=== PATIENT | male | born 1960 | race African-American/Black ===

== ENCOUNTER → 2017-03-30 | Outpatient (CLI) | payer OTHER ==
[~2017-03-30] MED LIST: AMLO5TAB4 PO; ASPI-482 PO; CARV12.5 PO; LOSA50TA6 PO
--- NOTE | 2017-03-30 15:07 | RAD ---
Chest radiograph 03/30/2017 2:00 AM Indication: Postop open heart surgery 5 years ago. Comparison: Chest 07/23/2012 Technique: PA and lateral views of the chest are provided. Findings: Median sternotomy changes are identified. Cardiac valvular prosthesis is present. Cardiomediastinal silhouette is enlarged, stable. No pleural effusions, pulmonary vascular congestion or pneumothorax. The lungs are clear. Osseous structures are normal. Impression: No acute cardiopulmonary process.
== END | disposition home or self-care (01) ==
LOC: RAD 09:58
PROVIDERS: ATTEND Surgery
DX: R07.9 Chest pain, unspecified (principal)
CPT/HCPCS: 71020

== ENCOUNTER 2017-04-04 08:00 | Inpatient (IN) | payer MEDICARE, OTHER ==
[~2017-04-04] VITALS: Ht 175.3 cm; Wt 71.7 kg
[2017-04-04] MEDS ORDERED: IV NORMAL SALINE 1000ML BAG 1,000 ML IV SCH (08:09)
[2017-04-04] MEDS ORDERED: ASPIRIN CHEWABLE 81 MG TABLET. PO ONE (08:15)
[2017-04-04] MEDS ORDERED: 0.9 % SODIUM CHLORIDE 10 ML DISP.SYRIN. IV PRN (08:15)
--- NOTE | 2017-04-04 08:29 | PHYS DOC ---
Past Medical History Past Medical History: High Cholesterol, Heart Disease, Hypertension Additional Past Surgical Histo: heart valve replacement. Smoking: Cigarettes Alcohol Use: Heavy Drug Use: Marijuana Adult General Chief Complaint Chief Complaint: CHEST PAIN HPI HPI He is a pleasant 57-year-old -[place] male with a history of valve replacement surgery presents with 3 day history of chest pain that began suddenly at rest. Patient is retired and has had a history of hypertension and hyperlipidemia and smokes marijuana on occasion and occasionally drinks alcohol on a daily basis presents with chest pain that began in the shoulder blade on the left with radiation to the neck and now constant pleuritic chest pain underneath the left breast. It is continuous in nature all the time sharp stabbing pains that comes in waves this very short nature. It makes him diaphoretic and short of breath when he has these pains. Denies any nausea, vomiting, diarrhea or URI symptoms. Patient admits that the pain is worse with chest wall movement and movement of shoulder. He is not ever had symptoms like this in the past. Patient denies any direct trauma to his chest wall, travel outside the country. Patient does admit that he's got decreased exercise tolerance over the last several months for which she's not been using his cane. Hedoesn't have energy enough to climb a couple steps. Patient denies any indiscretion with salt intake or dietary changes. He does admit that he's been having sleep on several pillows at night as well as increasing frequency of using the restroom in dye range feeder. Differential diagnosis for chest pain: Pericarditis, myocarditis, endocarditis, pneumothorax, pneumonia, aortic dissection, esophageal spasm, esophagitis, peptic ulcer disease, acute coronary syndrome, mediastinitis, Boerhaave syndrome , musculoskeletal chest wall pain, costochondritis, intercostal strain, rib fracture, pulmonary contusion, pneumonitis, pleural effusion, pericardial effusion, pericardial tamponode, and pleurisy. Differential diagnosis: Acute myocardial ischemia, heart failure, cardiac tamponade, bronchospasm, pulmonary embolism, pneumothorax, pulmonary infection i.e. bronchitis or pneumonia, upper airway obstruction, anaphylaxis, aspiration , psychogenic, pulmonary contusion, toxidrome, pneumomediastinum, noncardiogenic pulmonary edema or ARDS, COPD, tuberculosis, cystic fibrosis, asthma, high altitude pulmonary edema, valvular dysfunction, cardiac dysrhythmia , stroke, neuromuscular diseases like myasthenia gravis gravis, ALS, Guillain- Johansen syndrome, metabolic acidosis to include diabetic ketoacidosis, sepsis, and obstructive disorders like massive obesity Criteria: Age < than 50 years Heart rate < 100 Oxygen saturation > 95% No hemoptysis No estrogen use No prior DVT or PE No unilateral leg swelling No surgery or trauma requiring hospitalization within the prior 4 weeks Unfortunately based on age he does not fit the low risk criteria. Review of Systems Review of Systems Constitutional: Denies fever or chills [] Eyes: Denies change in visual acuity, redness, or eye pain [] HENT: Denies nasal congestion or sore throat [] Respiratory: He does complain of shortness of breath with this chest wall pain. Cardiovascular: No additional information not addressed in HPI [] GI: Denies abdominal pain, nausea, vomiting, bloody stools or diarrhea [] : Denies dysuria or hematuria [] Musculoskeletal: Denies back pain or joint pain [] Integument: Denies rash or skin lesions [] Neurologic: Denies headache, focal weakness or sensory changes [] Endocrine: Denies polyuria or polydipsia [] Current Medications Current Medications Current Medications Medications (Trade) Dose Ordered Sig/Amado Start Time Stop Time Status Last Admin Dose Admin Albuterol/ Ipratropium (Duoneb) 3 ml RTQID 04/04/17 12:00 04/05/17 11:59 Aspirin (Children'S Aspirin) 324 mg 1X ONCE 04/04/17 08:15 04/04/17 08:31 DC 04/04/17 08:51 324 MG Fentanyl Citrate (Fentanyl 2ml Vial) 50 mcg PRN Q1HR PRN 04/04/17 10:00 04/05/17 09:59 Furosemide (Lasix) 80 mg 1X ONCE 04/04/17 10:00 04/04/17 10:05 DC Hydromorphone HCl (Dilaudid) 1 mg 1X ONCE 04/04/17 08:30 04/04/17 08:31 DC 04/04/17 08:52 1 MG Methylprednisolone Sodium Succinate (SOLU-Medrol 125MG VIAL) 125 mg 1X ONCE 04/04/17 09:00 04/04/17 09:02 DC 04/04/17 09:31 125 MG Nitroglycerin (Nitrostat) 0.4 mg PRN Q5MIN PRN 04/04/17 10:00 04/05/17 09:59 Ondansetron HCl (Zofran) 4 mg PRN Q8HRS PRN 04/04/17 10:00 04/05/17 09:59 Sodium Chloride 1,000 ml @ 70 mls/hr [id number] 04/04/17 09:59 04/05/17 09:58 Sodium Chloride (Normal Saline Flush) 10 ml QSHIFT PRN 04/04/17 08:15 Allergies Allergies Allergies Coded Allergies Type Severity Reaction Last Updated Verified No Known Drug Allergies 04/04/17 No Physical Exam Physical Exam Vital signs within normal limits as noted on the chart. Constitutional: Well developed, well nourished, this patient is obviously uncomfortable and is diaphoretic but nontoxic in appearance. HENT: Normocephalic, atraumatic, bilateral external ears normal, oropharynx moist, no oral exudates, nose normal. [] Eyes: PERRLA, EOMI, conjunctiva normal, no discharge. [] Neck: Normal range of motion, no tenderness, supple, no stridor. [] Cardiovascular:Heart rate regular rhythm, no murmur [] Lungs & Thorax: Patient has markedly decreased breath sounds on the left with some high-pitched wheeze. Noted mild retractions sternal notch Abdomen: Bowel sounds normal, soft, no tenderness, no masses, no pulsatile masses. [] Skin: Warm, no erythema no rash patient mildly diaphoretic Back: No tenderness, no CVA tenderness. [] Extremities: No tenderness, no cyanosis, no clubbing, ROM intact, no edema. [] Neurologic: Alert and oriented X 3, normal motor function, normal sensory function, no focal deficits noted. [] Psychologic: Affect normal, judgement normal, mood normal. [] Current Patient Data Vital Signs Vital Signs Date Time Temp Pulse Resp B/P (MAP) Pulse Ox O2 Delivery O2 Flow Rate FiO2 04/04/17 09:21 97 Room Air 04/04/17 08:52 16 04/04/17 08:21 97.9 86 170/111 (130) 97.9 Lab Values Laboratory Tests Test 04/04/17 08:18 White Blood Count 9.3 x10^3/uL (4.0-11.0) Red Blood Count 4.47 x10^6/uL (4.30-5.70) Hemoglobin 12.3 g/dL (13.0-17.5) L Hematocrit 38.8 % (39.0-53.0) L Mean Corpuscular Volume 87 fL (79-100) Mean Corpuscular Hemoglobin 28 pg (25-35) Mean Corpuscular Hemoglobin Concent 32 g/dL (31-37) Red Cell Distribution Width 16.3 % (11.5-14.5) H Platelet Count 248 x10^3/uL (140-400) Neutrophils (%) (Auto) 64 % (31-73) Lymphocytes (%) (Auto) 28 % (24-48) Monocytes (%) (Auto) 7 % (0-9) Eosinophils (%) (Auto) 0 % (0-3) Basophils (%) (Auto) 1 % (0-3) Neutrophils # (Auto) 5.9 x10^3uL (1.8-7.7) Lymphocytes # (Auto) 2.6 x10^3/uL (1.0-4.8) Monocytes # (Auto) 0.6 x10^3/uL (0.0-1.1) Eosinophils # (Auto) 0.0 x10^3/uL (0.0-0.7) Basophils # (Auto) 0.1 x10^3/uL (0.0-0.2) Sodium Level 140 mmol/L (136-145) Potassium Level 4.2 mmol/L (3.5-5.1) Chloride Level 103 mmol/L (98-107) Carbon Dioxide Level 30 mmol/L (21-32) Anion Gap 7 (6-14) Blood Urea Nitrogen 8 mg/dL (8-26) Creatinine 1.2 mg/dL (0.7-1.3) Estimated GFR (Cockcroft-Gault) 76.1 Glucose Level 124 mg/dL (70-99) H Calcium Level 9.4 mg/dL (8.5-10.1) Magnesium Level 1.9 mg/dL (1.8-2.4) Total Bilirubin 0.5 mg/dL (0.2-1.0) Direct Bilirubin 0.1 mg/dL (0.0-0.2) Aspartate Amino Transferase (AST) 47 U/L (15-37) H Alanine Aminotransferase (ALT) 44 U/L (16-63) Alkaline Phosphatase 158 U/L (46-116) H Creatine Kinase 83 U/L (39-308) Creatine Kinase MB (Mass) 0.5 ng/mL (0.0-3.6) Creatine Kinase MB Relative Index 0.6 % (0-4) Troponin I Quantitative 0.027 ng/mL (0.000-0.055) RL-Ccs-S-Type Natriuretic Peptide 1856 pg/mL (0-124) H Total Protein 7.9 g/dL (6.4-8.2) Albumin 3.5 g/dL (3.4-5.0) Lipase 286 U/L (73-393) Thyroid Stimulating Hormone (TSH) 1.536 uIU/mL (0.358-3.74) Laboratory Tests 04/04/17 08:18 Laboratory Tests 04/04/17 08:18 EKG EKG []Patient's EKG timed 8:[address] Doan demonstrates heart rate of 89 sinus rhythm with left atrial enlargement there is no ST segment or T-wave changes consistent with acute or ischemia. Patient has T-wave flattening in the lateral leads patient's AL interval is 136 which is normal patient's QRS is 90 which is normal patient's QTc is 471 which is normal. Radiology/Procedures Radiology/Procedures [] [facility] [address] [place] [address] IMAGING REPORT Signed PATIENT: DOREEN TAYLOR ACCOUNT: [id number] : 1960 LOCATION: ER AGE: 57 SEX: M EXAM STATUS: PRE ER ORD. PHYSICIAN: NAGA DOAN MD REASON: chest pain PROCEDURE: PORTABLE CHEST 1V Portable chest, 04/04/2017: History: Left-sided chest pain Comparison is made to a study from 03/30/2017. A cardiac valvular prosthesis is in place. The heart is mildly enlarged. The pulmonary vascularity is normal. No pulmonary infiltrates are seen. There is no evidence of pleural fluid. IMPRESSION: 1. Mild cardiomegaly. 2. No acute abnormality is detected. DICTATED and SIGNED BY: BRENDA WOOD MD DATE: 04/04/17 0834 CC: NAGA DOAN MD; Shamar ZELAYA MD ~ Course & Med Decision Making Course & Med Decision Making Pertinent Labs and Imaging studies reviewed. (See chart for details) chest pain differential considered upon arrival. My concern with patient's evaluation respiratory distress and diaphoresis is pneumothorax. Patient wanted immediate EKG, chest x-ray and appropriate supportive lab work done to ensure that this is not an acute coronary event. Given his propensity to drink alcohol and smoke THC patient also may have an URI or bronchitis. Patient tells me that their symptoms given during CC are improved. At this point 9 AM patient was markedly better just with the IV medications of pain control. It was noted that his chest x-ray didn't demonstrate a large cardiac shadow with no obvious signs of cephalization. Patient some wheezing and crackles at the bases a DuoNeb was ordered with some Solu-Medrol. Patient tells me that their symptoms given during CC are improved. We reviewed labs and radiology reports with patient and any family at bedside.. Time is now 9:45 AM patient is noted to be feeling markedly better no longer diaphoretic no longer short of breath no longer wheezing. Patient denied discussed elevated proBNP and enlarged cardiac shadow which is likely symptomatic of congestive heart failure. Given his history of increased shortness of breath with exertion as well as pain at night and nocturnal dyspnea as well as orthopnea it is likely that this is due to cardiac strain secondary to poorly controlled hypertension. Patient denied discussed admission for the sake of cardiology evaluation diuresing him of his extra fluid and seeing if he can improve his symptoms of exertional shortness of breath with a simple therapies. At this point IV Lasix and nitrates sublingually ordered. Plan was discussed with the nurse taking care of this. The patient. An internal medicine was paged. Fisher Eel Spear note: 9:55 AM medicine creative services coordinator called at of the service 10 AM Consult called back at Discussed the case I presented and they agreed with admission. Time of acceptance spoke with on-call physician Dr. Bhakta At this point impression is congestive heart failure and chest pain possibly cardiac in nature. Patient has a negative troponin and a negative EKG for any acute coronary ischemia. Patient has an enlarged cardiac shadow and an elevated proBNP consistent with congestive heart failure as well as a history is very concerning for that etiology. Patient be given medication to help diuresis congestive heart failure. Pain medications as also helped his chest pain symptoms. I spent approximately 45-50 minutes working and engaged directly in the patient care providing critical care evaluation this includes but not limited to time spent engaged in work directly related to the individual patients care. I spent time at the bedside, reviewing test results, discussing the case with staff, documenting the medical record and time spent with EMS discussing specific treatment issues when the patient presented and during his evaluation. [] Dragon Disclaimer Dragon Disclaimer This electronic medical record was generated, in whole or in part, using a voice recognition dictation system. Departure Departure Impression: Primary Impression: Chest pain Additional Impression: CHF (congestive heart failure) Disposition: 09 ADMITTED INPATIENT Admitting Physician: Royce Bhakta Condition: GUARDED Referrals: Shamar ZELAYA MD (PCP) Problem Qualifiers NAGA DOAN MD Apr 04, 2017 08:29
[2017-04-04] MEDS ORDERED: ONDANSETRON PF 4 MG/2 ML VIAL. IV ONE (08:30)
[2017-04-04] MEDS ORDERED: HYDROmorphone 2 MG/ML VIAL IV ONE (08:30)
[2017-04-04 08:36] LABS: BASO # 0.1 x10^3/uL (0.0-0.2); BASO % 1 % (0-3); EOS % 0 % (0-3); HEMATOCRIT 38.8 % (39.0-53.0); HEMOGLOBIN 12.3 g/dL (13.0-17.5); LYMPH # 2.6 x10^3/uL (1.0-4.8); LYMPH % 28 % (24-48); MEAN CORPUSCULAR HEMOGLOBIN 28 pg (25-35); MEAN CORPUSCULAR HGB CONC 32 g/dL (31-37); MEAN CORPUSCULAR VOLUME 87 fL (79-100); MONO % 7 % (0-9); NEUT % 64 % (31-73); PLATELET COUNT 248 x10^3/uL (140-400); RED BLOOD COUNT 4.47 x10^6/uL (4.30-5.70); RED CELL DISTRIBUTION WIDTH 16.3 % (11.5-14.5); WHITE BLOOD COUNT 9.3 x10^3/uL (4.0-11.0)
--- NOTE | 2017-04-04 08:37 | RAD ---
Portable chest, 04/04/2017: History: Left-sided chest pain Comparison is made to a study from 03/30/2017. A cardiac valvular prosthesis is in place. The heart is mildly enlarged. The pulmonary vascularity is normal. No pulmonary infiltrates are seen. There is no evidence of pleural fluid. IMPRESSION: 1. Mild cardiomegaly. 2. No acute abnormality is detected.
[2017-04-04 08:42] LABS: CALCIUM 9.4 mg/dL (8.5-10.1); CREATININE 1.2 mg/dL (0.7-1.3); GFR 76.1; POTASSIUM 4.2 mmol/L (3.5-5.1)
[2017-04-04 08:47] LABS: ALBUMIN 3.5 g/dL (3.4-5.0); DIRECT BILIRUBIN 0.1 mg/dL (0.0-0.2); MAGNESIUM 1.9 mg/dL (1.8-2.4); TOTAL BILIRUBIN 0.5 mg/dL (0.2-1.0); TOTAL PROTEIN 7.9 g/dL (6.4-8.2)
--- NOTE | 2017-04-04 08:50 | EKG ---
[facility] [address] [place] [address] Test Date: 2017-04-04 Test Time: 08:12:15 Pat Name: DOREEN TAYLOR Department: Room: Gender: M Dcs Engineer: : 1960 Requested By: NAGA DOAN Order Number: [id number] Reading MD: Diallo Pulliam Measurements Intervals [place] Rate: 89 P: 90 RI: 136 QRS: -9 QRSD: 90 T: 93 QT: 386 QTc: 471 Interpretive Statements SINUS RHYTHM POSSIBLE LEFT VENTRICULAR HYPERTROPHY WITH REPOL ABN. Electronically Signed On 04-09-2017 10:20:52 CDT by Diallo Pulliam
[2017-04-04 08:53] LABS: CKMB MASS 0.5 ng/mL (0.0-3.6)
[2017-04-04] MEDS ORDERED: IPRATRPIUM/ALBUTEROL 0.5/2.5MG 3 ML NEBU. NEB ONE (09:00)
[2017-04-04] MEDS ORDERED: methylPREDNISolone SOD SUCC PF 125 MG/2 ML VIAL. IV ONE (09:00)
[2017-04-04] MEDS ORDERED: fentaNYL PF VIAL 100 MCG/2 ML VIAL IV PRN (10:00)
[2017-04-04] MEDS ORDERED: NITROGLYCERIN SUBLINGUAL 0.4 MG BOTTLE OF 25. SL PRN ×2 (10:00)
[2017-04-04] MEDS ORDERED: ONDANSETRON PF 4 MG/2 ML VIAL. IV PRN (10:00)
[2017-04-04] MEDS ORDERED: FUROSEMIDE 40 MG/4 ML VIAL. IVP ONE (10:00)
[2017-04-04] MEDS: IV NORMAL SALINE 1000ML BAG 1,000 ML IV SCH (10:51)
[2017-04-04 11:00] VITALS: BP 162/104
[2017-04-04] MEDS: IPRATRPIUM/ALBUTEROL 0.5/2.5MG 3 ML NEBU. NEB SCH ×3 (12:03→19:06)
[2017-04-04 12:07] VITALS: BP 152/102
--- NOTE | 2017-04-04 12:41 | PDOC2 ---
MINO MUHAMMAD BUTTON TUFTING MACHINE OPERATOR 04/04/17 1241: CARDIAC CONSULT DATE OF CONSULT Date of Consult DATE: 04/04/17 TIME: 12:32 REASON FOR CONSULT Reason for Consult: Chest pain New onset CHF REFERRING PHYSICIAN Referring Physician: Dr. Briggs SOURCE Source: Chart review, Patient HISTORY OF PRESENT ILLNESS HISTORY OF PRESENT ILLNESS This is a 57 yo male, with a history of CAD s/p CABG in 2012, who presented with complaints of shortness of breath and chest pain. Patient developed right neck pain about three weeks ago. Johnson like it was a "crook" in his neck. Worse with certain movements. Pain moved down and across his his back and eventually to his left side/chest area. Associated with shortness of breath with exertion and orthopnea. No palpitations, dizziness, or nausea/vomiting. Reports having night sweats since starting Norvasc a few weeks ago. Left lateral chest pain worsened with deep breathing, movement, and by applying pressures to the left side. Improved with massage. Pain has been constant for the last 3 weeks, much worse the last week. Last night, pain so severe he was unable to sleep so he came into the ED for further evaluation. Pain resolved with Dilaudid. SOA also improved following Lasix 80mg IV and breathing treatments in ED. Initial troponin negative. NT Pro BNP mildly elevated, CXR without vascular congestion. PAST MEDICAL HISTORY Cardiovascular: CAD, CHF (with ICM ), HTN, Valve insufficiency (s/p mitral valve repair with ring annuloplasty and left atrial appendage ligation) GI: No pertinent hx Heme/Onc: No pertinent hx Hepatobiliary: No pertinent hx Psych: No pertinent hx Rheumatologic: No pertinent hx Infectious disease: No pertinent hx ENT: No pertinent hx Renal/: No pertinent hx Endocrine: No pertinent hx Dermatology: No pertinent hx PAST SURGICAL HISTORY Past Surgical History: CABG, Other (mitral valve repair ) FAMILY HISTORY Family History: Coronary Artery Disease, Heart Disease, Hypertension SOCIAL HISTORY Smoke: No ALCOHOL: none Drugs: None Lives: with Family CURRENT MEDICATIONS CURRENT MEDICATIONS Current Medications Medications (Trade) Dose Ordered Sig/Amado Route PRN Reason Start Time Stop Time Status Last Admin Dose Admin Aspirin (Children'S Aspirin) 324 mg 1X ONCE PO 04/04/17 08:15 04/04/17 08:31 DC 04/04/17 08:51 Sodium Chloride 1,000 ml @ 1,000 mls/hr Q1H IV 04/04/17 08:09 04/04/17 09:08 DC 04/04/17 08:09 Hydromorphone HCl (Dilaudid) 1 mg 1X ONCE IV 04/04/17 08:30 04/04/17 08:31 DC 04/04/17 08:52 Ondansetron HCl (Zofran) 4 mg 1X ONCE IV 04/04/17 08:30 04/04/17 08:31 DC 04/04/17 08:51 Albuterol/ Ipratropium (Duoneb) 3 ml 1X ONCE NEB 04/04/17 09:00 04/04/17 09:02 DC 04/04/17 09:21 Methylprednisolone Sodium Succinate (SOLU-Medrol 125MG VIAL) 125 mg 1X ONCE IV 04/04/17 09:00 04/04/17 09:02 DC 04/04/17 09:31 Furosemide (Lasix) 80 mg 1X ONCE IVP 04/04/17 10:00 04/04/17 10:05 DC 04/04/17 10:17 Sodium Chloride 1,000 ml @ 70 mls/hr [id number] IV 04/04/17 09:59 04/05/17 09:58 04/04/17 10:51 Albuterol/ Ipratropium (Duoneb) 3 ml RTQID NEB 04/04/17 12:00 04/05/17 11:59 04/04/17 12:03 ALLERGIES ALLERGIES: Coded Allergies: No Known Drug Allergies (Unverified , 04/04/17) ROS Review of System 14 point ROS conducted with pertinent positives noted above in HPI. PHYSICAL EXAM General: Alert, Oriented X3, Cooperative, No acute distress HEENT: Atraumatic, Mucous membr. moist/pink Lungs: Other (diminished bases ) Heart: Regular rate, Normal S1, Normal S2, Other (2/6 systolic murmur ) Abdomen: Soft, No tenderness Extremities: No edema, Normal pulses Skin: No breakdown, No significant lesion Neuro: Normal speech, Sensation intact Psych/Mental Status: Mental status NL, Mood NL MUSCULOSKELETAL: Osteoarthritic changes both hands VITALS VITALS Vital Signs Date Time Temp Pulse Resp B/P (MAP) Pulse Ox O2 Delivery O2 Flow Rate FiO2 04/04/17 12:07 98.2 75 16 152/102 (119) 95 Room Air 98.2 LABS Lab: Laboratory Tests Test 04/04/17 08:18 White Blood Count 9.3 x10^3/uL (4.0-11.0) Red Blood Count 4.47 x10^6/uL (4.30-5.70) Hemoglobin 12.3 g/dL (13.0-17.5) Hematocrit 38.8 % (39.0-53.0) Mean Corpuscular Volume 87 fL (79-100) Mean Corpuscular Hemoglobin 28 pg (25-35) Mean Corpuscular Hemoglobin Concent 32 g/dL (31-37) Red Cell Distribution Width 16.3 % (11.5-14.5) Platelet Count 248 x10^3/uL (140-400) Neutrophils (%) (Auto) 64 % (31-73) Lymphocytes (%) (Auto) 28 % (24-48) Monocytes (%) (Auto) 7 % (0-9) Eosinophils (%) (Auto) 0 % (0-3) Basophils (%) (Auto) 1 % (0-3) Neutrophils # (Auto) 5.9 x10^3uL (1.8-7.7) Lymphocytes # (Auto) 2.6 x10^3/uL (1.0-4.8) Monocytes # (Auto) 0.6 x10^3/uL (0.0-1.1) Eosinophils # (Auto) 0.0 x10^3/uL (0.0-0.7) Basophils # (Auto) 0.1 x10^3/uL (0.0-0.2) Sodium Level 140 mmol/L (136-145) Potassium Level 4.2 mmol/L (3.5-5.1) Chloride Level 103 mmol/L (98-107) Carbon Dioxide Level 30 mmol/L (21-32) Anion Gap 7 (6-14) Blood Urea Nitrogen 8 mg/dL (8-26) Creatinine 1.2 mg/dL (0.7-1.3) Estimated GFR (Cockcroft-Gault) 76.1 Glucose Level 124 mg/dL (70-99) Calcium Level 9.4 mg/dL (8.5-10.1) Magnesium Level 1.9 mg/dL (1.8-2.4) Total Bilirubin 0.5 mg/dL (0.2-1.0) Direct Bilirubin 0.1 mg/dL (0.0-0.2) Aspartate Amino Transf (AST/SGOT) 47 U/L (15-37) Alanine Aminotransferase (ALT/SGPT) 44 U/L (16-63) Alkaline Phosphatase 158 U/L (46-116) Creatine Kinase 83 U/L (39-308) Creatine Kinase MB (Mass) 0.5 ng/mL (0.0-3.6) Creatine Kinase MB Relative Index 0.6 % (0-4) Troponin I Quantitative 0.027 ng/mL (0.000-0.055) RR-Kbp-B-Type Natriuretic Peptide 1856 pg/mL (0-124) Total Protein 7.9 g/dL (6.4-8.2) Albumin 3.5 g/dL (3.4-5.0) Lipase 286 U/L (73-393) Thyroid Stimulating Hormone (TSH) 1.536 uIU/mL (0.358-3.74) ASSESSMENT/PLAN ASSESSMENT/PLAN 1. Chest pain, atypical and most probably MSK in origin 2. Mild acute on chronic systolic heart failure with ICM; LVEF 30-35% (10/2012) 3. CAD s/p CABG 2012 4. S/p mitral valve repair with ring annuloplasty 5. Accelerate hypertension 6. Hyperlipidemia Recommendations Trend troponin. Lipids in am Check echo to assess LV function/mitral valve Resume home antiHTN therapy. Monitor to assess need for therapy titration Continue secondary prevention measures Replace potassium following significant UOP with 80mg IV Lasix Stop Norvasc. Start ARB given LV dysfunction and HTN. Supportive care Further recommendations pending diagnostics. Problems: KASSIDY EPPERSON MD 04/04/17 2229: CARDIAC CONSULT ALLERGIES ALLERGIES: Coded Allergies: No Known Drug Allergies (Unverified , 04/04/17) ASSESSMENT/PLAN ASSESSMENT/PLAN Pt. seen and examined. Agree with above HOOK TENDER note with following changes: 57 y.o with prior CABG and MV ring. Presenting with progressive dyspnea. He has not had any significant improvement in LV function since CABG. Will plan for right and left heart cath to rule out ischemia, consider ICD if no clear new lesions. Problems: MINO MUHAMMAD APRN Apr 04, 2017 12:41 KASSIDY EPPERSON MD Apr 04, 2017 22:29
[2017-04-04] MEDS ORDERED: ASPI-482 PO (13:10)
[2017-04-04] MEDS ORDERED: CARV12.5 PO (13:10)
[2017-04-04] MEDS ORDERED: AMLO5TAB4 PO (13:10)
[2017-04-04] MEDS ORDERED: POTASSIUM CHLORIDE 20 MEQ TABLET.ER. PO ONE (13:30)
[2017-04-04] MEDS ORDERED: amLODIPine BESYLATE 5 MG TABLET PO SCH (14:00)
--- NOTE | 2017-04-04 14:59 | CARD ---
APPROVED REPORT EXAM: Two-dimensional and M-mode echocardiogram with Doppler and color Doppler. Other Information Quality : GoodHR: 74bpm Rhythm : NSR INDICATION Cardiac Disease: CAD Chest Pain Congenital Heart Disease 2D DIMENSIONS RVDd3.7 (2.9-3.5cm)Left Atrium(2D)4.1 (1.6-4.0cm) IVSd0.9 (0.7-1.1cm)Aortic Root(2D)3.4 (2.0-3.7cm) LVDd6.7 (3.9-5.9cm)LVOT Diameter2.3 (1.8-2.4cm) PWd1.0 (0.7-1.1cm)LVDs6.3 (2.5-4.0cm) FS (%) 6.7 %SV33.9 ml LVEF(%)14.6 (>50%) M-Mode DIMENSIONS LVDd6.77 (4.0-5.6cm)FS (%) 19 % LVDs5.45 (2.0-3.8cm)ESV(Teich)144.3 ml LVEF(%)39 (>50%) Aortic Valve AoV Peak [place].128.9cm/sAoV VTI24.5cm AO Peak GR.6.6mmHgLVOT Peak [place].62.4cm/s AO Mean GR.4mmHgAVA (VMAX)1.96cm2 Mitral Valve MV E Mnexuywp367.7cm/sMV E Peak Gr.19mmHg MV DECEL [id number] A Qqrdknzk33.4cm/s MV E Mean Gr.6mmHgE/A Ratio4.3 MV A Atmidnpt50reKRS Planimetry2.69cm2 Pulmonary Valve PV Peak Jitqpcwh23.1cm/s Tricuspid Valve TR P. Utwclpxp551sz/sTR Peak Gr.58mmHg Pulmonary Vein S1 Dhxzfvoc67.1cm/sD2 Jbyexfrt13.9cm/s PVa hexefzcu84xake LEFT VENTRICLE The Left Ventricle is mildly dilated. There is normal left ventricular wall thickness. Left ventricle systolic function is severely impaired. The Ejection Fraction is 20-25%. There is severe global hypo kinesis of the left ventricle. Transmitral Doppler flow pattern is Grade II-pseudonormal filling aniket mics. No left ventricle thrombus noted on this study. RIGHT VENTRICLE The right ventricle is mildly dilated. There is normal right ventricular wall thickness. Systolic fun ction is moderately reduced. ATRIA The left atrium is mildly dilated. The right atrium size is normal. The interatrial septum is intact with no evidence for an atrial septal defect or patent foramen ovale as noted on 2-D or Doppler imagi ng. AORTIC VALVE The aortic valve is mildly sclerotic. The aortic valve is trileaflet. Doppler and Color Flow revealed trace aortic regurgitation. There is no significant aortic valvular stenosis. MITRAL VALVE The mitral valve leaflets are moderately thickened. There is no evidence of mitral valve prolapse. Th ere is no mitral valve stenosis. Doppler and Color Flow revealed mild to moderate mitral regurgitatio n. There is evidence of mitral valve ring repair. Mitral inflow velocities show a peak max gradient o f 19 mmHg. and mean peak gradient of 6 mmHg. TRICUSPID VALVE Doppler and Color Flow revealed mild tricuspid regurgitation. The pulmonary artery systolic pressure is estimated at 66 mmHg. There is severe pulmonary hypertension. PULMONIC VALVE The pulmonary valve is not well visualized but appears to open adequately. Doppler and Color Flow rev ealed mild pulmonic valvular regurgitation. There is no pulmonic valvular stenosis by spectral Dopple r. GREAT VESSELS The aortic root is normal in size. The ascending aorta is normal in size. The pulmonary artery is nor mal. The IVC is dilated and collapses <50% with inspiration. PERICARDIAL EFFUSION There is no evidence of significant pericardial effusion. Critical Notification Date: 04/04/2017 Time: 14:39 Physician Name:Zohra Ritter Critical Value: Yes Response Time:Immediate <Conclusion> Left ventricle systolic function is severely impaired. The Ejection Fraction is 20-25%. Doppler and Color Flow revealed trace aortic regurgitation. s/p mitral valve ring repair with mean peak gradient of 6 mmHg. Mild to moderate mitral regurgitation. Mild tricuspid regurgitation. The pulmonary artery systolic pressure is estimated at 66 mmHg. There is severe pulmonary hypertension. There is no evidence of significant pericardial effusion.
[2017-04-04 15:00] VITALS: BP 161/106
[2017-04-04] MEDS: CARVEDILOL 12.5 MG TABLET. PO SCH (16:05)
--- NOTE | 2017-04-04 16:43 | HP ---
ADMIT DATE: 04/04/2017 CHIEF COMPLAINT: Shortness of breath. HISTORY OF PRESENT ILLNESS: The patient is a pleasant middle-aged male who has known coronary artery disease. He presented with shortness of breath. While in the ER, he was noted to have a little bit of vascular congestion on chest x-ray. I have discussed the case with the ER physician. We are going to admit the patient with consultation to Cardiology. He is being examined on the cardiac floor right now where the nurse practitioner for Cardiology is also seeing. PAST MEDICAL HISTORY: Myocardial infarction, coronary artery bypass grafting, mild CHF, hypertension, status post mitral valve repair. ALLERGIES: None. FAMILY HISTORY: Coronary artery disease and hypertension. SOCIAL HISTORY: He does not drink, smoke or take drugs. He is . MEDICATIONS: Reviewed. REVIEW OF SYSTEMS: GENERAL: No history of weight change, weakness or fevers. SKIN: No bruising, hair changes or rashes. EYES: No blurred, double or loss of vision. NOSE AND THROAT: No history of nosebleeds, hoarseness or sore throat. HEART: No history of palpitations, chest pain or shortness of breath on exertion. LUNGS: Complains of shortness of breath. GASTROINTESTINAL: Denies changes in appetite, nausea, vomiting, diarrhea or constipation. GENITOURINARY: No history of frequency, urgency, hesitancy or nocturia. NEUROLOGIC: Denies history of numbness, tingling, tremor or weakness. PSYCHIATRIC: No history of panic, anxiety or depression. ENDOCRINE: No history of heat or cold intolerance, polyuria or polydipsia. EXTREMITIES: Denies muscle weakness, joint pain, pain on walking or stiffness. PHYSICAL EXAMINATION: VITAL SIGNS: Temperature afebrile, pulse is 78, respirations 16, blood pressure 161/106, O2 sat 97% on room air. GENERAL: He is alert, cooperative, very pleasant. His is present. HEART: Normal S1, S2 with a soft S3. LUNGS: Slight crackles. ABDOMEN: Soft. EXTREMITIES: Trace edema. SKIN: No rashes. PSYCHIATRIC: He is a little anxious. VASCULAR: Good capillary refill. ENDOCRINE: No thyromegaly. LYMPHATICS: No cervical nodes. HEMATOPOIETIC: No bruising. LABORATORY DATA: White count 9, hemoglobin 12, platelets 248. Electrolytes normal. AST slightly high at 47, alkaline phosphatase slightly high at 158. BNP 1856. Troponin is 0.027, we repeated and is now 0.017. ASSESSMENT AND PLAN: Shortness of breath with vague chest pain in a middle-aged male who has above-noted comorbidities. I discussed the case with the patient and his and the nurse practitioner for Cardiology. The plan is to check an echo and see how his left ventricle is pumping. We will continue cardiac monitoring, serial enzymes, serial EKGs. Continue home medicines. We will probably diurese him a little bit. Regarding the slight elevation of his AST and alkaline phosphatase, we will consult Gastroenterology for a second opinion. LONG-TERM PROGNOSIS: Guarded. ELIJAH PEÑALOZA DO DR: LOYD/justine JOB#: [id number] / [id number]
[2017-04-04 19:25] VITALS: BP 147/102
[2017-04-04] MEDS: ASPIRIN ENTERIC COATED 81 MG TABLET.DR. PO SCH (21:44)
[2017-04-04 23:20] VITALS: BP 140/92
[2017-04-05] VITALS (14 sets, daily range): BP systolic 113–152; BP diastolic 86–101
[2017-04-05] MEDS: IV NORMAL SALINE 1000ML BAG 1,000 ML IV SCH (00:17)
--- NOTE | 2017-04-05 04:44 | ACF ---
Admission Forms Criteria HEART FAILURE: COMMON COMPLICATIONS (Place 'X' for any and all applicable criteria): Ongoing inpatient care may be indicated for heart failure with 1 or more of the following (1)(2)(3)(4)(5)(6)(7)(8): [ ]I. New-onset heart failure [ ]II. Acute cardiac ischemia causing or associated with failure [ ]III. Ongoing need for care for primary condition requiring frequent therapy adjustments because of changes in cardiac function (eg, drug dosage changes for drugs that are renally metabolized) [X]IV. Complications of heart failure, including 1 or more of the following: [ ]a) Hemodynamic instability [ ]b) Pericardial effusion [ ]c) Symptomatic pleural effusion [ ]d) Hypoxemia [ ]e) Tachypnea [X]f) Dyspnea [ ]g) Syncope [ ]h) Altered mental status [ ]i) Acute renal insufficiency that is severe (reduction of more than 50% in estimated glomerular filtration rate from baseline) or progressive reduction of more than 25% in estimated glomerular filtration rate from baseline, with creatinine continuing to rise) [ ]j) Debilitating anasarca (eg tissue breakdown with infection, inability to void due to edema) (E) [ ]k) Clinically significant metabolic abnormalities due to heart failure (eg, new-onset metabolic acidosis) Extended stay may be needed until ALL of the following are present (1)(3)(18)(41 )(55) [ ]a) Hemodynamic stability [ ]b) Stable and effective diuretic regimen established (or patient on stable dialysis regimen if in chronic renal failure) [ ]c) Volume status acceptable on oral medication [ ]d) Breathing comfortably at rest [ ]e) Saturation of arterial oxygen greater than 90% or at acceptable baseline [ ]f) Pulmonary edema absent or improved [ ]g) Peripheral or sacral edema absent or improved [ ]h) Renal function stable and manageable at a lower level of care [ ]i) Complications (eg, pleural effusion) resolved or manageable at a lower level of care [ ]g) Patient or caregiver has received written discharge instructions or educational material addressing activity level, diet, discharge medications, follow-up appointment, weight monitoring, and what to do if symptoms worsen.(25)(26) The original [facility] content created by [email or web address] has been revised. The portions of the content which have been revised are identified through the use of italic text, and [facility] has neither reviewed nor approved the modified material.All other unmodified content is copyright [facility]. Please see references footnoted in the original [facility] edition 2015 Admission Criteria Met?: Yes TRAVIS GUZMAN Apr 05, 2017 04:44
[2017-04-05 05:51] LABS: CALCIUM 8.9 mg/dL (8.5-10.1); CREATININE 1.2 mg/dL (0.7-1.3); GFR 76.1; MAGNESIUM 1.7 mg/dL (1.8-2.4)
[2017-04-05 05:52] LABS: CHOLESTEROL/HDL RATIO 4.4
[2017-04-05] MEDS ORDERED: MAGNESIUM SULFATE 2GM 50 ML IV ONE ×2 (07:00→10:00)
[2017-04-05] MEDS ORDERED: LEVOTHYROXINE 25 MCG TABLET. PO SCH (07:00)
[2017-04-05] MEDS: IPRATRPIUM/ALBUTEROL 0.5/2.5MG 3 ML NEBU. NEB SCH (07:54)
--- NOTE | 2017-04-05 09:10 | RAD ---
Indication:Abnormal liver function test Grayscale images of the abdomen were obtained. Comparison none Liver:The visualized liver appears normal. No mass or abnormality is seen. Gallbladder:Normal. The common bile duct diameter of approximately 3 mm is also normal Spleen:Normal Pancreas:The visualized head and proximal body appeared normal. The more distal body was obscured. Kidneys:Normal Abdominal aorta and IVC:The visualized inferior vena cava appeared normal. The proximal abdominal aorta appeared normal. The more distal abdominal aorta was obscured by gas Ancillary findings:None Impression:No acute or significant finding. Midline structures partially obscured by gas
[2017-04-05] MEDS ORDERED: HYDROcodone/APAP 5/325MG 1 TAB TABLET PO PRN (09:30)
[2017-04-05] MEDS ORDERED: ONDANSETRON PF 4 MG/2 ML VIAL. IV PRN (09:45)
[2017-04-05] MEDS ORDERED: LIDOCAINE 2% 20 ML VIAL. ONE (09:56)
[2017-04-05] MEDS ORDERED: IODIXANOL 320 MG/ML 100 ML VIAL. ONE (09:56)
--- NOTE | 2017-04-05 10:10 | PDOC2 ---
GI CONSULT Reason For Consult: Elevated AST and Alk Phos HPI: HPI: 57 y/o male admitted yesterday w/ SOA and CP, h/o CAD, just back from heart cath. GI asked to see re: AST 47 and Alk Phos 158. Both were normal in 12/2014 (only labs for comparison). Normal liver on US. Reports has lower abd pain occasionally upon waking, particularly if takes pills on an empty stomach. Always improves w/ food. Occasional heartburn improved w/ Tums. No n/v, dysphagia, diarrhea, constipation, hematochezia, or melena. No NSAID use. No previous EGD or colonoscopy. No GB, liver, or pancreas history. Drinks wine occasionally on weekends or holidays. PMH: PMH: CAD, CHF w/ ICM , HTN, MVR, CABG FH: Family History: CAD, Hypertension Social History: Smoke: No ALCOHOL: occassional Drugs: Marijuana ROS: GEN: Denies fevers, chills, sweats HEENT: Denies blurred vision, sore throat CV: Denies chest pain RESP: Denies shortness of air, cough GI: Per HPI : Denies hematuria, dysuria ENDO: Denies weight changes NEURO: Denies confusion, dizziness MSK: Denies weakness, joint pain/swelling SKIN: Denies jaundice, pruritus Vitals: Vitals: Vital Signs Date Time Temp Pulse Resp B/P (MAP) Pulse Ox O2 Delivery O2 Flow Rate FiO2 04/05/17 08:55 Room Air 04/05/17 07:56 98 04/05/17 07:46 97.9 77 18 152/96 (114) 97.9 Labs: Labs: Laboratory Tests Test 04/04/17 14:55 04/04/17 20:00 04/05/17 03:40 Troponin I Quantitative < 0.017 ng/mL (0.000-0.055) < 0.017 ng/mL (0.000-0.055) Sodium Level 139 mmol/L (136-145) Potassium Level 4.0 mmol/L (3.5-5.1) Chloride Level 101 mmol/L (98-107) Carbon Dioxide Level 29 mmol/L (21-32) Anion Gap 9 (6-14) Blood Urea Nitrogen 13 mg/dL (8-26) Creatinine 1.2 mg/dL (0.7-1.3) Estimated GFR (Cockcroft-Gault) 76.1 Glucose Level 136 mg/dL (70-99) Calcium Level 8.9 mg/dL (8.5-10.1) Magnesium Level 1.7 mg/dL (1.8-2.4) Triglycerides Level 39 mg/dL (0-150) Cholesterol Level 154 mg/dL (0-200) LDL Cholesterol, Calculated 111 mg/dL (0-100) VLDL Cholesterol, Calculated 8 mg/dL (0-40) Non-HDL Cholesterol Calculated 119 mg/dL (0-129) HDL Cholesterol 35 mg/dL (40-60) Cholesterol/HDL Ratio 4.4 Allergies: Coded Allergies: No Known Drug Allergies (Unverified , 04/04/17) Medications: Current Medications Medications (Trade) Dose Ordered Sig/Amado Route PRN Reason Start Time Stop Time Status Last Admin Dose Admin Albuterol/ Ipratropium (Duoneb) 3 ml RTQID NEB 04/04/17 12:00 04/05/17 11:59 04/05/17 07:54 Aspirin (Ecotrin) 81 mg BID PO 04/04/17 21:00 04/04/17 21:44 Carvedilol (Coreg) 12.5 mg BIDWMEALS PO 04/04/17 17:00 04/04/17 16:05 Potassium Chloride (Klor-Con) 40 meq 1X ONCE PO 04/04/17 13:30 04/04/17 13:39 DC 04/04/17 15:01 Magnesium Sulfate/ Dextrose 50 ml @ 25 mls/hr 1X ONCE IV 04/05/17 07:00 04/05/17 08:59 DC 04/05/17 06:29 Imaging: Imaging: CXR 04/04/17 IMPRESSION: 1. Mild cardiomegaly. 2. No acute abnormality is detected. Echocardiogram 04/04/17 <Conclusion> Left ventricle systolic function is severely impaired. The Ejection Fraction is 20-25%. Doppler and Color Flow revealed trace aortic regurgitation. s/p mitral valve ring repair with mean peak gradient of 6 mmHg. Mild to moderate mitral regurgitation. Mild tricuspid regurgitation. The pulmonary artery systolic pressure is estimated at 66 mmHg. There is severe pulmonary hypertension. There is no evidence of significant pericardial effusion. Abd US 04/05/17 Liver:The visualized liver appears normal. No mass or abnormality is seen. Gallbladder: Normal. The common bile duct diameter of approximately 3 mm is also normal. Spleen:Normal. Pancreas:The visualized head and proximal body appeared normal. The more distal body was obscured. Kidneys:Normal. Abdominal aorta and IVC:The visualized inferior vena cava appeared normal. The proximal abdominal aorta appeared normal. The more distal abdominal aorta was obscured by gas. Ancillary findings:None. Impression:No acute or significant finding. Midline structures partially obscured by gas. PE: GEN: NAD HEENT: Atraumatic, PERRL LUNGS: CTAB anteriorly HEART: RRR ABD: NABS, S/ND/NT EXTREMITY: No edema SKIN: No rashes, no jaundice NEURO/PSYCH: A & O 3 A/P: A/P: CP, SOA, CAD Elevated AST, elevated Alk Phos -US as above -- Will review additional recommendations w/ Dr. Duque. Needs outpt screening colonoscopy. HAZEL HORNE Apr 05, 2017 10:10
[2017-04-05] MEDS ORDERED: fentaNYL PF VIAL 100 MCG/2 ML VIAL ONE (10:13)
[2017-04-05] MEDS ORDERED: MIDAZOLAM HCL/PF 5 MG/5 ML VIAL. ONE (10:13)
[2017-04-05] MEDS ORDERED: IODIXANOL 320 MG/ML 100 ML VIAL. IART ONE (10:30)
[2017-04-05] MEDS ORDERED: LIDOCAINE 2% 20 ML VIAL. IJ ONE (10:30)
[2017-04-05] MEDS ORDERED: MIDAZOLAM HCL/PF 5 MG/5 ML VIAL. IV ONE (10:30)
[2017-04-05] MEDS ORDERED: fentaNYL PF VIAL 100 MCG/2 ML VIAL IV ONE (10:30)
--- NOTE | 2017-04-05 11:30 | PDOC ---
PROGRESS NOTES Chief Complaint Chief Complaint 1. CHest pain 2. Hx CAD 3. HYpomagnesemia 4. CM with low EF 25% 5. Pulm HTN History of Present Illness History of Present Illness Out having [facility] Was a high risk CP admit given hx Low mag - 2 gms iV mag ordered Echo: <Conclusion> Left ventricle systolic function is severely impaired. The Ejection Fraction is 20-25%. Doppler and Color Flow revealed trace aortic regurgitation. s/p mitral valve ring repair with mean peak gradient of 6 mmHg. Mild to moderate mitral regurgitation. Mild tricuspid regurgitation. The pulmonary artery systolic pressure is estimated at 66 mmHg. There is severe pulmonary hypertension. There is no evidence of significant pericardial effusion. PLAn: Await from [facility] Follow cards recs WIll need meds for low EF and severe pulm HTN to dec preload/after load Vitals Vitals Vital Signs Date Time Temp Pulse Resp B/P (MAP) Pulse Ox O2 Delivery O2 Flow Rate FiO2 04/05/17 08:55 Room Air 04/05/17 07:56 98 04/05/17 07:46 97.9 77 18 152/96 (114) 97.9 Physical Exam General: Alert, Oriented X3, Cooperative, No acute distress Heart: Regular rate, Normal S1, Normal S2, Other (2/6 systolic murmur ) Abdomen: Soft, No tenderness Extremities: No edema, Normal pulses Skin: No breakdown, No significant lesion Labs LABS Laboratory Tests Test 04/04/17 14:55 04/04/17 20:00 04/05/17 03:40 Troponin I Quantitative < 0.017 ng/mL (0.000-0.055) < 0.017 ng/mL (0.000-0.055) Sodium Level 139 mmol/L (136-145) Potassium Level 4.0 mmol/L (3.5-5.1) Chloride Level 101 mmol/L (98-107) Carbon Dioxide Level 29 mmol/L (21-32) Anion Gap 9 (6-14) Blood Urea Nitrogen 13 mg/dL (8-26) Creatinine 1.2 mg/dL (0.7-1.3) Estimated GFR (Cockcroft-Gault) 76.1 Glucose Level 136 mg/dL (70-99) Calcium Level 8.9 mg/dL (8.5-10.1) Magnesium Level 1.7 mg/dL (1.8-2.4) Triglycerides Level 39 mg/dL (0-150) Cholesterol Level 154 mg/dL (0-200) LDL Cholesterol, Calculated 111 mg/dL (0-100) VLDL Cholesterol, Calculated 8 mg/dL (0-40) Non-HDL Cholesterol Calculated 119 mg/dL (0-129) HDL Cholesterol 35 mg/dL (40-60) Cholesterol/HDL Ratio 4.4 Review of Systems Review of Systems out having [facility] Comment Review of Relevant I have reviewed the following items rob (where applicable) has been applied. Labs Laboratory Tests Test 04/04/17 08:18 04/04/17 14:55 04/04/17 20:00 04/05/17 03:40 White Blood Count 9.3 x10^3/uL (4.0-11.0) Red Blood Count 4.47 x10^6/uL (4.30-5.70) Hemoglobin 12.3 g/dL (13.0-17.5) Hematocrit 38.8 % (39.0-53.0) Mean Corpuscular Volume 87 fL (79-100) Mean Corpuscular Hemoglobin 28 pg (25-35) Mean Corpuscular Hemoglobin Concent 32 g/dL (31-37) Red Cell Distribution Width 16.3 % (11.5-14.5) Platelet Count 248 x10^3/uL (140-400) Neutrophils (%) (Auto) 64 % (31-73) Lymphocytes (%) (Auto) 28 % (24-48) Monocytes (%) (Auto) 7 % (0-9) Eosinophils (%) (Auto) 0 % (0-3) Basophils (%) (Auto) 1 % (0-3) Neutrophils # (Auto) 5.9 x10^3uL (1.8-7.7) Lymphocytes # (Auto) 2.6 x10^3/uL (1.0-4.8) Monocytes # (Auto) 0.6 x10^3/uL (0.0-1.1) Eosinophils # (Auto) 0.0 x10^3/uL (0.0-0.7) Basophils # (Auto) 0.1 x10^3/uL (0.0-0.2) D-Dimer (Angelina) 1.18 ug/mlFEU (0.00-0.50) Sodium Level 140 mmol/L (136-145) 139 mmol/L (136-145) Potassium Level 4.2 mmol/L (3.5-5.1) 4.0 mmol/L (3.5-5.1) Chloride Level 103 mmol/L (98-107) 101 mmol/L (98-107) Carbon Dioxide Level 30 mmol/L (21-32) 29 mmol/L (21-32) Anion Gap 7 (6-14) 9 (6-14) Blood Urea Nitrogen 8 mg/dL (8-26) 13 mg/dL (8-26) Creatinine 1.2 mg/dL (0.7-1.3) 1.2 mg/dL (0.7-1.3) Estimated GFR (Cockcroft-Gault) 76.1 76.1 Glucose Level 124 mg/dL (70-99) 136 mg/dL (70-99) Calcium Level 9.4 mg/dL (8.5-10.1) 8.9 mg/dL (8.5-10.1) Magnesium Level 1.9 mg/dL (1.8-2.4) 1.7 mg/dL (1.8-2.4) Total Bilirubin 0.5 mg/dL (0.2-1.0) Direct Bilirubin 0.1 mg/dL (0.0-0.2) Aspartate Amino Transf (AST/SGOT) 47 U/L (15-37) Alanine Aminotransferase (ALT/SGPT) 44 U/L (16-63) Alkaline Phosphatase 158 U/L (46-116) Creatine Kinase 83 U/L (39-308) Creatine Kinase MB (Mass) 0.5 ng/mL (0.0-3.6) Creatine Kinase MB Relative Index 0.6 % (0-4) Troponin I Quantitative 0.027 ng/mL (0.000-0.055) < 0.017 ng/mL (0.000-0.055) < 0.017 ng/mL (0.000-0.055) VK-Nml-A-Type Natriuretic Peptide 1856 pg/mL (0-124) Total Protein 7.9 g/dL (6.4-8.2) Albumin 3.5 g/dL (3.4-5.0) Lipase 286 U/L (73-393) Thyroid Stimulating Hormone (TSH) 1.536 uIU/mL (0.358-3.74) Triglycerides Level 39 mg/dL (0-150) Cholesterol Level 154 mg/dL (0-200) LDL Cholesterol, Calculated 111 mg/dL (0-100) VLDL Cholesterol, Calculated 8 mg/dL (0-40) Non-HDL Cholesterol Calculated 119 mg/dL (0-129) HDL Cholesterol 35 mg/dL (40-60) Cholesterol/HDL Ratio 4.4 Laboratory Tests Test 04/04/17 14:55 04/04/17 20:00 04/05/17 03:40 Troponin I Quantitative < 0.017 ng/mL (0.000-0.055) < 0.017 ng/mL (0.000-0.055) Sodium Level 139 mmol/L (136-145) Potassium Level 4.0 mmol/L (3.5-5.1) Chloride Level 101 mmol/L (98-107) Carbon Dioxide Level 29 mmol/L (21-32) Anion Gap 9 (6-14) Blood Urea Nitrogen 13 mg/dL (8-26) Creatinine 1.2 mg/dL (0.7-1.3) Estimated GFR (Cockcroft-Gault) 76.1 Glucose Level 136 mg/dL (70-99) Calcium Level 8.9 mg/dL (8.5-10.1) Magnesium Level 1.7 mg/dL (1.8-2.4) Triglycerides Level 39 mg/dL (0-150) Cholesterol Level 154 mg/dL (0-200) LDL Cholesterol, Calculated 111 mg/dL (0-100) VLDL Cholesterol, Calculated 8 mg/dL (0-40) Non-HDL Cholesterol Calculated 119 mg/dL (0-129) HDL Cholesterol 35 mg/dL (40-60) Cholesterol/HDL Ratio 4.4 Medications Current Medications Aspirin (Children'S Aspirin) 324 mg 1X ONCE PO Last administered on 04/04/17 08:51; Start 04/04/17 at 08:15; Stop 04/04/17 at 08:31; Status DC Sodium Chloride 1,000 ml @ 1,000 mls/hr Q1H IV Last administered on 04/04/17 08:09; Start 04/04/17 at 08:09; Stop 04/04/17 at 09:08; Status DC Sodium Chloride (Normal Saline Flush) 10 ml QSHIFT PRN IV AFTER MEDS AND BLOOD DRAWS; Start 04/04/17 at 08:15 Hydromorphone HCl (Dilaudid) 1 mg 1X ONCE IV Last administered on 04/04/17 08 :52; Start 04/04/17 at 08:30; Stop 04/04/17 at 08:31; Status DC Ondansetron HCl (Zofran) 4 mg 1X ONCE IV Last administered on 04/04/17 08:51 ; Start 04/04/17 at 08:30; Stop 04/04/17 at 08:31; Status DC Albuterol/ Ipratropium (Duoneb) 3 ml 1X ONCE NEB Last administered on 09:21; Start 04/04/17 at 09:00; Stop 04/04/17 at 09:02; Status DC Methylprednisolone Sodium Succinate (SOLU-Medrol 125MG VIAL) 125 mg 1X ONCE IV Last administered on 04/04/17 09:31; Start 04/04/17 at 09:00; Stop 04/04/17 at 09:02; Status DC Nitroglycerin (Nitrostat) 0.4 mg PRN Q5MIN PRN SL CHEST PAIN; Start 04/04/17 at 10:00 Furosemide (Lasix) 80 mg 1X ONCE IVP Last administered on 04/04/17 10:17; Start 04/04/17 at 10:00; Stop 04/04/17 at 10:05; Status DC Ondansetron HCl (Zofran) 4 mg PRN Q8HRS PRN IV NAUSEA/VOMITING; Start 04/04/17 at 10:00; Stop 04/05/17 at 09:32; Status DC Fentanyl Citrate (Fentanyl 2ml Vial) 50 mcg PRN Q1HR PRN IV PAIN Last administered on 04/05/17 08:55; Start 04/04/17 at 10:00; Stop 04/05/17 at 09:59 ; Status DC Sodium Chloride 1,000 ml @ 70 mls/hr [id number] IV Last administered on 10:51; Start 04/04/17 at 09:59; Stop 04/05/17 at 09:58; Status DC Nitroglycerin (Nitrostat) 0.4 mg PRN Q5MIN PRN SL CHEST PAIN; Start 04/04/17 at 10:00; Stop 04/05/17 at 09:59; Status DC Albuterol/ Ipratropium (Duoneb) 3 ml RTQID NEB Last administered on 04/05/17 07:54; Start 04/04/17 at 12:00; Stop 04/05/17 at 11:59 Amlodipine Besylate (Norvasc) 5 mg DAILY PO ; Start 04/04/17 at 14:00; Stop at 14:00; Status DC Aspirin (Ecotrin) 81 mg BID PO Last administered on 04/04/17 21:44; Start at 21:00 Carvedilol (Coreg) 12.5 mg BIDWMEALS PO Last administered on 04/04/17 16:05; Start 04/04/17 at 17:00 Potassium Chloride (Klor-Con) 40 meq 1X ONCE PO Last administered on 15:01; Start 04/04/17 at 13:30; Stop 04/04/17 at 13:39; Status DC Losartan Potassium (Cozaar) 50 mg DAILY PO ; Start 04/05/17 at 09:00 Levothyroxine Sodium (Synthroid) 25 mcg DAILY07 PO ; Start 04/05/17 at 07:00; Status UNV Magnesium Sulfate/ Dextrose 50 ml @ 25 mls/hr 1X ONCE IV Last administered on 04/05/17 06:29; Start 04/05/17 at 07:00; Stop 04/05/17 at 08:59; Status DC Ondansetron HCl (Zofran) 4 mg PRN Q6HRS PRN IV NAUSEA/VOMITING; Start 04/05/17 at 09:45; Stop 04/06/17 at 09:44 Magnesium Sulfate/ Dextrose 50 ml @ 25 mls/hr 1X ONCE IV ; Start 04/05/17 at 10 :00; Stop 04/05/17 at 11:59 Morphine Sulfate 2 mg PRN Q2HR PRN IV PAIN; Start 04/05/17 at 09:30 Acetaminophen/ Hydrocodone Bitart (Lortab 5/325) 1 tab PRN Q4HRS PRN PO PAIN; Start 04/05/17 at 09:30 Heparin Sodium/ Sodium Chloride 1,000 ml @ As Directed STK-MED ONCE .ROUTE ; Start 04/05/17 at 09:56; Stop 04/05/17 at 09:57; Status DC Lidocaine HCl 20 ml STK-MED ONCE .ROUTE ; Start 04/05/17 at 09:56; Stop at 09:57; Status DC Iodixanol (Visipaque 320) 100 ml STK-MED ONCE .ROUTE ; Start 04/05/17 at 09:56; Stop 04/05/17 at 09:57; Status DC Fentanyl Citrate (Fentanyl 2ml Vial) 100 mcg STK-MED ONCE .ROUTE ; Start at 10:13; Stop 04/05/17 at 10:14; Status DC Midazolam HCl (Versed) 5 mg STK-MED ONCE .ROUTE ; Start 04/05/17 at 10:13; Stop 04/05/17 at 10:14; Status DC Heparin Sodium/ Sodium Chloride 1,000 unit 1X ONCE IART ; Start 04/05/17 at 10: 30; Stop 04/05/17 at 10:59; Status DC Heparin Sodium/ Sodium Chloride 1,000 unit 1X ONCE IART ; Start 04/05/17 at 10: 30; Stop 04/05/17 at 10:59; Status DC Midazolam HCl (Versed) 5 mg 1X ONCE IV ; Start 04/05/17 at 10:30; Stop at 10:59; Status DC Fentanyl Citrate (Fentanyl 2ml Vial) 100 mcg 1X ONCE IV ; Start 04/05/17 at 10: 30; Stop 04/05/17 at 10:59; Status DC Iodixanol (Visipaque 320) 100 ml 1X ONCE IART ; Start 04/05/17 at 10:30; Stop 04/05/17 at 10:59; Status DC Lidocaine HCl 20 ml 1X ONCE IJ ; Start 04/05/17 at 10:30; Stop 04/05/17 at 10: 59; Status DC Active Scripts Active Reported Aspir 81 (Aspirin) 81 Mg Tablet.dr 81 Mg PO BID Coreg (Carvedilol) 12.5 Mg Tablet 12.5 Mg PO BIDWMEALS Norvasc (Amlodipine Besylate) 5 Mg Tablet 5 Mg PO DAILY Vitals/I & O Vital Sign - Last 24 Hours 9/13/17 04/04/17 04/04/17 04/04/17 12:03 12:07 12:36 13:17 Temp 98.2 98.2 Pulse 75 75 Resp 16 B/P (MAP) 152/102 (119) 152/102 Pulse Ox 97 95 O2 Delivery Room Air Room Air Room Air 04/04/17 04/04/17 04/04/17 04/04/17 15:00 16:02 16:05 19:07 Temp 97.2 97.2 Pulse 87 75 Resp 16 B/P (MAP) 161/106 (124) 152/102 Pulse Ox 97 O2 Delivery Room Air Room Air Room Air 04/04/17 04/04/17 04/04/17 04/05/17 19:25 20:06 23:20 03:25 Temp 97.6 97.9 98.0 97.6 97.9 98.0 Pulse 82 78 80 Resp 19 18 16 B/P (MAP) 147/102 (117) 140/92 (108) 136/94 (108) Pulse Ox 97 98 98 O2 Delivery Room Air Room Air Room Air Room Air 04/05/17 04/05/17 04/05/17 07:46 07:56 08:55 Temp 97.9 97.9 Pulse 77 Resp 18 B/P (MAP) 152/96 (114) Pulse Ox 96 98 O2 Delivery Room Air Room Air Room Air ADEOLA MORALES MD Apr 05, 2017 11:30
[2017-04-05] MEDS: LOSARTAN POTASSIUM 50 MG TABLET. PO SCH (12:47)
[2017-04-05] MEDS: CARVEDILOL 12.5 MG TABLET. PO SCH ×2 (12:48→17:42)
[2017-04-05] MEDS: ASPIRIN ENTERIC COATED 81 MG TABLET.DR. PO SCH ×2 (12:48→21:39)
--- NOTE | 2017-04-05 14:07 | CARD ---
APPROVED REPORT Procedure(s) performed: SEDATION TIME: 64 MINUTES Right heart catheterization Left heart catheterization Supravalvular aortography Coronary and bypass angiography HISTORY The patient is a 57 year-old male with a history of : coronary artery disease, hypertension, previous CABG (The CABG date was ), dyslipidemia. INDICATION The indication(s) include : unstable angina , dyspnea. CASE TECHNIQUE During this case, Fluoroscopy and low osmolar contrast were used for imaging. PROCEDURE NARRATIVE The patient was brought electively to the cardiac catheterization lab. A timeout was performed confi rming the patient's name, date of , procedure, and site of procedure. All necessary personnel w ere wearing the appropriate protective equipment and radiation monitor devices. After explaining the risks and benefits of the procedure and alternatives, informed consent was obtained. (See nursing no christina for medications administered). The right groin was sterilely prepped and draped in the usual fas hion. The right groin was infiltrated with 20 mL of 2% lidocaine for subcutaneous anesthesia. A 6 F sheath was inserted into the right femoral artery via the modified seldinger technique with an 18G ne edle and a J-tipped guidewire. Next, an 8Fr sheath was inserted in the right common femoral vein in s imilar fashion. There was mild difficulty advancing sheaths over the guide wire due to fibrotic tiss ue planes but no acute issues were noted. A PA catheter was then advanced through the right heart chambers, pressures and saturations were obta ined. Subsequently, right and left coronary angiography was performed using standard JR4 and JL4 diag nostic catheters. Bypass angigography was performed with a JR4 catheter. Left ventricular end diasto lic pressure was obtained with a pigtail catheter and pullback was performed after left ventriculogra phy. Aortography was performed with a pigtail catheter. HEMODYNAMICS: LVEDP 25 mm Hg AO: 150/82 *No gradient on LV to aortic pullback. PCWP: 25 mm Hg PA: 60/39/44 RV: 57/10/20 RA: 18 mm Hg Sj: 4.3 L/min PA saturation: 67% FA saturation: 98% LEFT VENTRICULOGRAM: Severe global hypokinesis with an EF of 20% No significant mitral regurgitation. No significant aortic insufficiency. AORTOGRAPHY: Normal caliber aorta with one bypass graft patent to the RCA. CORONARY ANGIOGRAPHY: LM is a large caliber vessel with normal angiographic appearance. LAD is a large caliber vessel a mid 40-50% stenosis at the site of D1. D1 is a moderate caliber vessel with an ostial 50% stenosis. LCx is a moderate caliber non-dominant vessel with a mid 50% stenosis. OM1 is a moderate caliber vessel with normal angiographic appearance. RCA is a moderate caliber dominant vessel with a mid 99% subtotal occlusion. The distal vessel fills via a patent vein graft. RPDA is a small caliber vessel with at fills via a patent vein graft and has mild diffuse irregularit ies. BYPASS ANGIOGRAPHY: SVG to RPDA: Widely patent without significant anastomotic disease. ELENA: Not used for grafting. Conclusion 1. Elevated biventricular filling pressures. 2. Mild pulmonary HTN. (mPA 44 mm Hg) 3. One vessel CAD involving the mid RCA, mild to moderate disease of the LAD. 3. Severe LV dysfunction. 4. Patent graft to RCA Recommendations Aggressive Medical Therapy
[2017-04-05] MEDS: MORPHINE SULFATE 2 MG/ML DISP.SYRIN. IV PRN ×2 (14:34→16:04)
[2017-04-06 03:00] VITALS: BP 124/87
[2017-04-06 07:00] VITALS: BP 129/89
[2017-04-06] MEDS: CARVEDILOL 12.5 MG TABLET. PO SCH (08:33)
[2017-04-06] MEDS: ASPIRIN ENTERIC COATED 81 MG TABLET.DR. PO SCH (08:34)
[2017-04-06] MEDS: LOSARTAN POTASSIUM 50 MG TABLET. PO SCH (08:34)
[2017-04-06 11:00] VITALS: BP 132/88
[2017-04-06 11:29] LABS: ALBUMIN 3.3 g/dL (3.4-5.0); DIRECT BILIRUBIN 0.2 mg/dL (0.0-0.2); TOTAL BILIRUBIN 0.6 mg/dL (0.2-1.0); TOTAL PROTEIN 7.7 g/dL (6.4-8.2)
--- NOTE | 2017-04-06 11:29 | PDOC ---
Subjective: Subjective: No complaints, wants to discharge. Objective: Vital Signs: Vital Signs Date Time Temp Pulse Resp B/P (MAP) Pulse Ox O2 Delivery O2 Flow Rate FiO2 04/06/17 08:34 70 129/89 04/06/17 08:15 Room Air 04/06/17 07:00 98.3 16 97 98.3 Imaging: Coronary Arteriogram Conclusion 1. Elevated biventricular filling pressures. 2. Mild pulmonary HTN. (mPA 44 mm Hg) 3. One vessel CAD involving the mid RCA, mild to moderate disease of the LAD. 3. Severe LV dysfunction. 4. Patent graft to RCA PE: GEN: NAD LUNGS: CTAB HEART: RRR ABD: S/ND/NT NEURO/PSYCH: A & O 3 A/P: CAD Elevated AST, elevated Alk Phos -US unrevealing, no labs today -- Except LFTs to normalize, likely related to cardiac issues/meds. DC per primary. Follow-up w/ Dr. Duque for outpt screening colonoscopy. HAZEL HORNE Apr 06, 2017 11:29
--- NOTE | 2017-04-06 12:30 | PDOC ---
CARDIO Progress Notes Date and Time Date of Service 04/06/17 Time of Evaluation 1100 Subjective Subjective: No Chest Pain, No shortness of breath, Other (wanting to go home) Vitals Vitals Vital Signs Date Time Temp Pulse Resp B/P (MAP) Pulse Ox O2 Delivery O2 Flow Rate FiO2 04/06/17 11:00 98.0 76 17 132/88 (103) 95 Room Air 98.0 Weight Weight [ ] Laboratory Labs Laboratory Tests Test 04/06/17 10:57 Total Bilirubin 0.6 mg/dL (0.2-1.0) Direct Bilirubin 0.2 mg/dL (0.0-0.2) Aspartate Amino Transf (AST/SGOT) 23 U/L (15-37) Alanine Aminotransferase (ALT/SGPT) 27 U/L (16-63) Alkaline Phosphatase 141 U/L (46-116) Total Protein 7.7 g/dL (6.4-8.2) Albumin 3.3 g/dL (3.4-5.0) Physical Exam HEENT: Neck Supple W Full Motion Chest: Symmetric LUNGS: Clear to Auscultation Heart: S1S2, RRR Abdomen: Soft N/T Extremities: No Edema Neurology: alert, oriented, follow commands Assessment Assessment 1. Chest pain, atypical and most probably MSK in origin. Cath revealed patent grafts. 2. Mild acute on chronic systolic heart failure with ICM; LVEF now 20-25% (2012). RHC with elevated biventricular filling pressures. Will add scheduled lasix for HF optimization. Continue ARB and BB. Outpatient f/u in 2-3 weeks with consideration of AICD implantation in prevention of SCD. 3. CAD s/p CABG 2012. Continue secondary prevention measures 4. S/p mitral valve repair with ring annuloplasty Echo with mean peak gradient of 6 mmHg and mild to moderate MR. continue medical management 5. Accelerate hypertension; now controlled. Continue current therapy 6. Hyperlipidemia; LDL 111. add statin MINO MUHAMMAD APRN Apr 06, 2017 12:30
--- NOTE | 2017-04-06 12:32 | PDOC3 ---
Discharge Summary Visit Information Date of Admission: Apr 04, 2017 Date of Discharge: Apr 06, 2017 Admitting Diagnosis Comment: CP, clean cath HTN controlled Final Diagnosis 57 y.o AA male admitted for CP, HTN too on 2 meds at home for it, LHC done was clean, Dcd on PO asa 81, coreg 12,5 BID and [id number] PO qD,. Stop norvasc Needs PCP for bP and routine ff up Pt seen and examined Dw pt and RN Estevan Brief Hospital Course Allergies Allergies Coded Allergies Type Severity Reaction Last Updated Verified No Known Drug Allergies 04/04/17 No Vital Signs Vital Signs Date Time Temp Pulse Resp B/P (MAP) Pulse Ox O2 Delivery O2 Flow Rate FiO2 04/06/17 11:00 98.0 76 17 132/88 (103) 95 Room Air 98.0 Lab Results Laboratory Tests Test 04/04/17 14:55 04/04/17 20:00 04/05/17 03:40 04/06/17 10:57 Troponin I Quantitative < 0.017 ng/mL (0.000-0.055) < 0.017 ng/mL (0.000-0.055) Sodium Level 139 mmol/L (136-145) Potassium Level 4.0 mmol/L (3.5-5.1) Chloride Level 101 mmol/L (98-107) Carbon Dioxide Level 29 mmol/L (21-32) Anion Gap 9 (6-14) Blood Urea Nitrogen 13 mg/dL (8-26) Creatinine 1.2 mg/dL (0.7-1.3) Estimated GFR (Cockcroft-Gault) 76.1 Glucose Level 136 mg/dL (70-99) Calcium Level 8.9 mg/dL (8.5-10.1) Magnesium Level 1.7 mg/dL (1.8-2.4) Triglycerides Level 39 mg/dL (0-150) Cholesterol Level 154 mg/dL (0-200) LDL Cholesterol, Calculated 111 mg/dL (0-100) VLDL Cholesterol, Calculated 8 mg/dL (0-40) Non-HDL Cholesterol Calculated 119 mg/dL (0-129) HDL Cholesterol 35 mg/dL (40-60) Cholesterol/HDL Ratio 4.4 Total Bilirubin 0.6 mg/dL (0.2-1.0) Direct Bilirubin 0.2 mg/dL (0.0-0.2) Aspartate Amino Transf (AST/SGOT) 23 U/L (15-37) Alanine Aminotransferase (ALT/SGPT) 27 U/L (16-63) Alkaline Phosphatase 141 U/L (46-116) Total Protein 7.7 g/dL (6.4-8.2) Albumin 3.3 g/dL (3.4-5.0) Laboratory Tests Test 04/06/17 10:57 Total Bilirubin 0.6 mg/dL (0.2-1.0) Direct Bilirubin 0.2 mg/dL (0.0-0.2) Aspartate Amino Transf (AST/SGOT) 23 U/L (15-37) Alanine Aminotransferase (ALT/SGPT) 27 U/L (16-63) Alkaline Phosphatase 141 U/L (46-116) Total Protein 7.7 g/dL (6.4-8.2) Albumin 3.3 g/dL (3.4-5.0) Brief Hospital Course Mr. Todd is a 57 old [sex] who presented with [ ] Discharge Information Scheduled Amlodipine Besylate (Norvasc), 5 MG PO DAILY, (Reported) Aspirin (Aspir 81), 81 MG PO BID, (Reported) Carvedilol (Coreg), 12.5 MG PO BIDWMEALS, (Reported) ADEOLA MORALES MD Apr 06, 2017 12:32
[2017-04-06] MEDS ORDERED: LOSA50TA6 PO (13:07)
[2017-04-06] MEDS ORDERED: ATORVASTATIN CALCIUM 10 MG TABLET. PO SCH (21:00)
[2017-04-07] MEDS ORDERED: POTASSIUM CHLORIDE 10 MEQ TABLET.ER. PO SCH (08:00)
[2017-04-07] MEDS ORDERED: FUROSEMIDE 20 MG/2 ML VIAL. IVP SCH (09:00)
== END 2017-04-06 14:20 | disposition home or self-care (01) | DRG 286 ==
LOC: ER 08:00 → 2 NORTH 10:07
PROVIDERS: ADMIT Internal Medicine; ATTEND Internal Medicine
PROC: 4A023N8 Measurement of Cardiac Sampling and Pressure, Bilateral, Percutaneous Approach (ICD-10-PCS; principal; 2017-04-05)
PROC: B2111ZZ Fluoroscopy of Multiple Coronary Arteries using Low Osmolar Contrast (ICD-10-PCS; 2017-04-05)
PROC: B2161ZZ Fluoroscopy of Right and Left Heart using Low Osmolar Contrast (ICD-10-PCS; 2017-04-05)
PROC: B3101ZZ Fluoroscopy of Thoracic Aorta using Low Osmolar Contrast (ICD-10-PCS; 2017-04-05)
PROC: B2121ZZ Fluoroscopy of Single Coronary Artery Bypass Graft using Low Osmolar Contrast (ICD-10-PCS; 2017-04-05)
DX: I25.110 Atherosclerotic heart disease of native coronary artery with unstable angina pectoris (principal); I50.23 Acute on chronic systolic (congestive) heart failure; I27.2 Other secondary pulmonary hypertension; E83.42 Hypomagnesemia; I11.0 Hypertensive heart disease with heart failure; E78.00 Pure hypercholesterolemia, unspecified; F12.90 Cannabis use, unspecified, uncomplicated; E78.5 Hyperlipidemia, unspecified; I34.0 Nonrheumatic mitral (valve) insufficiency; Z95.2 Presence of prosthetic heart valve; I25.2 Old myocardial infarction; Z82.49 Family history of ischemic heart disease and other diseases of the circulatory system; Z95.1 Presence of aortocoronary bypass graft; Z72.89 Other problems related to lifestyle
CPT/HCPCS: 36415; 71010; 76700; 80048; 80061; 80076; 82553; 83690; 83735; 83880; 84443; 84484; 85025; 85379; 93005; 93306; 93461; 93567; 94250; 94640; 94760; 96361; 96374; 96375; 99152; 99153; C1769; C1771; C1773; C1892; G0269; J1170; J1644; J1940; J2250; J2270; J2405; J2930; J3010; J7030; J7060; J7620; 99291-25; J2001

== ENCOUNTER 2017-08-13 10:41 | Observation (INO) | payer MEDICARE ==
[2017-08-13] MEDS: IV RINGERS,LACTATED 1000ML 1,000 ML IV ×2 (07:00)
[~2017-08-13 10:41] MED LIST changes: -AMLO5TAB4 PO; -ASPI-482 PO; -CARV12.5 PO; +HYDROmorphone 2 MG/ML VIAL IV; +LIDOCAINE 1% PF 2 ML VIAL. ID; -LOSA50TA6 PO; +ONDANSETRON PF 4 MG/2 ML VIAL. IV; +PROCHLORPERAZINE 10 MG/2 ML VIAL. IV; +fentaNYL PF VIAL 100 MCG/2 ML VIAL IV
[2017-08-13 11:51] LABS: HEMATOCRIT 38.7 % (39.0-53.0); HEMOGLOBIN 12.8 g/dL (13.0-17.5); MEAN CORPUSCULAR HEMOGLOBIN 28 pg (25-35); MEAN CORPUSCULAR HGB CONC 33 g/dL (31-37); MEAN CORPUSCULAR VOLUME 84 fL (79-100); PLATELET COUNT 209 x10^3/uL (140-400); RED BLOOD COUNT 4.62 x10^6/uL (4.30-5.70); RED CELL DISTRIBUTION WIDTH 18.6 % (11.5-14.5); WHITE BLOOD COUNT 7.2 x10^3/uL (4.0-11.0)
[2017-08-13 12:06] LABS: ANION GAP 12 (6-14); BLOOD UREA NITROGEN 7 mg/dL (8-26); CALCIUM 9.3 mg/dL (8.5-10.1); CARBON DIOXIDE 28 mmol/L (21-32); CHLORIDE 101 mmol/L (98-107); CREATININE 0.9 mg/dL (0.7-1.3); GLUCOSE 92 mg/dL (70-99); POTASSIUM 4.1 mmol/L (3.5-5.1); SODIUM 141 mmol/L (136-145)
[2017-08-13] MEDS ORDERED: PROPOFOL 60 ML IV ×2 (12:39)
[2017-08-13] MEDS ORDERED: MIDAZOLAM HCL/PF 2 MG/2 ML VIAL. ×2 (12:39)
[2017-08-13] MEDS ORDERED: KETAMINE HCL 500 MG/10 ML VIAL. ×2 (12:40)
[2017-08-13] MEDS: LIDOCAINE 2%/EPI 1:100,000 20 ML VIAL. IJ ×4 (14:00→15:44)
[2017-08-13] MEDS ORDERED: LIDOCAINE 2%/EPI 1:100,000 20 ML VIAL. ×2 (14:15)
[2017-08-13] MEDS ORDERED: PROPOFOL 10 MG/ML (20ML) VIAL. IV ×2 (15:00)
[2017-08-13] MEDS ORDERED: GLYCOPYRROLATE 1 MG/5 ML VIAL. ×2 (15:00)
[2017-08-13] MEDS: BACITRACIN 50,000 UNIT in IV NORMAL SALINE 250ML 250 ML IRR (15:44)
[2017-08-13] MEDS ORDERED: NO ANTICOAGULANT THERAPY. MC ×2 (16:15)
[2017-08-13] MEDS ORDERED: fentaNYL PF VIAL 100 MCG/2 ML VIAL ×2 (16:29)
[2017-08-13] MEDS: fentaNYL PF VIAL 100 MCG/2 ML VIAL IV ×4 (16:32→16:38)
[2017-08-13] MEDS: MORPHINE SULFATE 2 MG/ML DISP.SYRIN. IV ×2 (18:30)
[2017-08-13] MEDS: LABETALOL 20 MG/4 ML DISP.SYRIN. IVP ×2 (19:28)
[2017-08-13] MEDS ORDERED: LABETALOL 20 MG/4 ML DISP.SYRIN. IVP ×2 (19:30)
[2017-08-13] MEDS: ASPIRIN ENTERIC COATED 81 MG TABLET.DR. PO ×2 (22:34)
[2017-08-13] MEDS: SACUBITRIL/VALSARTAN 24/26MG TABLET. PO ×2 (22:34)
[2017-08-13] MEDS: CARVEDILOL 12.5 MG TABLET. PO ×2 (22:35)
[2017-08-13] MEDS: HYDROcodone/APAP 5/325MG 1 TAB TABLET PO ×2 (22:36)
[2017-08-14] MEDS: MORPHINE SULFATE 2 MG/ML DISP.SYRIN. IV ×4 (00:07→07:25)
[2017-08-14] MEDS: LABETALOL 20 MG/4 ML DISP.SYRIN. IVP ×2 (00:08)
[2017-08-14] MEDS: HYDROcodone/APAP 5/325MG 1 TAB TABLET PO ×4 (06:49→13:32)
[2017-08-14] MEDS: CARVEDILOL 12.5 MG TABLET. PO ×2 (07:25)
[2017-08-14] MEDS: ASPIRIN ENTERIC COATED 81 MG TABLET.DR. PO ×2 (07:25)
[2017-08-14] MEDS: SACUBITRIL/VALSARTAN 24/26MG TABLET. PO ×2 (07:26)
[2017-08-14] MEDS: amLODIPine BESYLATE 5 MG TABLET PO ×2 (09:00)
[2017-08-14 11:49] LABS: POC GLUCOSE 98 mg/dL (70-99)
== END 2017-08-14 16:00 | disposition home or self-care (01) ==
LOC: SURG 10:41 → 2 NORTH 14:16
DX: I42.9 Cardiomyopathy, unspecified (principal); Z79.899 Other long term (current) drug therapy; Z95.810 Presence of automatic (implantable) cardiac defibrillator
CPT/HCPCS: 33230; 36415; 71045; 71046; 80048; 82962; 85027; 85610; 93005; 93641; 96365; 96375; 96376; C1721; C1882; C1895; G0378; G0379; J0690; J2250; J2270; J2704; J3010; J3490; J7050

== ENCOUNTER 2017-10-16 16:47 | Emergency (ER) | payer MEDICARE ==
[2017-10-16] MEDS: HYDROcodone/APAP 5/325MG 1 TAB TABLET PO (19:06)
== END 2017-10-16 19:27 | disposition home or self-care (01) ==
LOC: ER 16:47
DX: S13.4XXA Sprain of ligaments of cervical spine, initial encounter (principal); S70.02XA Contusion of left hip, initial encounter; S20.219A Contusion of unspecified front wall of thorax, initial encounter; E78.00 Pure hypercholesterolemia, unspecified; I11.0 Hypertensive heart disease with heart failure; I50.9 Heart failure, unspecified; Z95.0 Presence of cardiac pacemaker; Z95.2 Presence of prosthetic heart valve; Z95.1 Presence of aortocoronary bypass graft; F12.10 Cannabis abuse, uncomplicated; V49.49XA Driver injured in collision with other motor vehicles in traffic accident, initial encounter; Y93.89 Activity, other specified; Y99.8 Other external cause status; Y92.488 Other paved roadways as the place of occurrence of the external cause
CPT/HCPCS: 70450; 71046; 72125; 73502; 99284-25

== ENCOUNTER → 2018-07-11 | Outpatient (CLI) | payer MEDICAID, MEDICARE ==
[2017-10-16 19:05] VITALS: BP 186/102
[~2018-07-11] MED LIST changes: +AMLO5TAB4 PO; +AMLO5TAB7 PO; +ASPI-482 PO; +CARV12.5 PO; +DIAZ5TAB PO; +FURO40TA4 PO; +HYDR-2761 PO; -HYDROmorphone 2 MG/ML VIAL IV; +ISOS30TA4 PO; -LIDOCAINE 1% PF 2 ML VIAL. ID; +LOSA-73 PO; +NAPR-683 PO; +NITR0.4T SL; -ONDANSETRON PF 4 MG/2 ML VIAL. IV; +OXYC1TAB15 PO; +POTA10TA12 PO; -PROCHLORPERAZINE 10 MG/2 ML VIAL. IV; +SACU1TAB PO; -fentaNYL PF VIAL 100 MCG/2 ML VIAL IV
--- NOTE | 2018-07-11 10:54 | CARD ---
MR#: [id number] Date of Study: 07/11/2018 Ordering Physician: MAILE VALVERDE, Referring Physician: MAILE VALVERDE, Tech: Domonique Khan RDCS APPROVED REPORT EXAM: Two-dimensional and M-mode echocardiogram with Doppler and color Doppler. Other Information Quality : Good INDICATION Non-Ischemic Cardiomyopathy Surgery/Intervention Status/Post Mitral Valve Replacement: Bioprosthetic ICD/Pacemaker: Date: 2017 CABG: Date: 2011 2D DIMENSIONS RVDd2.9 (2.9-3.5cm)Left Atrium(2D)4.6 (1.6-4.0cm) IVSd0.9 (0.7-1.1cm)Aortic Root(2D)3.1 (2.0-3.7cm) LVDd6.2 (3.9-5.9cm)LVOT Diameter2.1 (1.8-2.4cm) PWd1.0 (0.7-1.1cm)LVDs6.0 (2.5-4.0cm) FS (%) 4.1 %SV18.0 ml LVEF(%)9.1 (>50%) M-Mode DIMENSIONS MV EPSS3.0 (<0.5cm) Aortic Valve AoV Peak Everton.108.4cm/sAoV VTI14.4cm AO Peak GR.4.7mmHgLVOT Peak [place].72.9cm/s AO Mean GR.2mmHgAVA (VMAX)2.24cm2 KATHLEEN (VTI)2.60cm2 Mitral Valve MV E Fulualhh572.1cm/sMV E Peak Gr.24mmHg MV DECEL [id number] A Yosaocce99.3cm/s MV E Mean Gr.5mmHgE/A Ratio4.8 Tricuspid Valve TR P. [id number]/sRAP [id number] TR Peak Gr.[id number] Pulmonary Vein S1 Mzggyigc41.2cm/sD2 Fugsdwqe05.4cm/s LEFT VENTRICLE The Left Ventricle is mildly dilated. There is normal left ventricular wall thickness. Left ventricle systolic function is severely impaired. The Ejection Fraction is 15-20%. There is severe global hypo kinesis of the left ventricle. Transmitral Doppler flow pattern is restrictive diastolic dysfunction. RIGHT VENTRICLE The right ventricle is mildly dilated. RV Systolic function is mildly reduced. There is a pacemaker/I CD lead in the right ventricle. ATRIA The left atrium is mildly dilated. The right atrium is mildly dilated. A pacemaker is seen in the rig ht atrium consistent with history. The interatrial septum is intact with no evidence for an atrial se ptal defect or patent foramen ovale as noted on 2-D or Doppler imaging. AORTIC VALVE The aortic valve is calcified but opens well. Doppler and Color Flow revealed trace aortic regurgitat ion. There is no significant aortic valvular stenosis. MITRAL VALVE The mitral valve is calcified and displays decreased opening. There is no evidence of mitral valve pr olapse. There is mild mitral valve stenosis. MG of 5 mm Hg. Doppler and Color-flow revealed moderate mitral regurgitation. Probable mitral ring noted. TRICUSPID VALVE The tricuspid valve is normal in structure and function. Doppler and Color Flow revealed mild to mode rate tricuspid regurgitation. There is moderate-severe pulmonary hypertension. The PA pressure was es timated at 68 mmHg. There is no tricuspid valve stenosis. PULMONIC VALVE The pulmonary valve is normal in structure and function. Doppler and Color Flow revealed mild pulmoni c valvular regurgitation. There is no pulmonic valvular stenosis. GREAT VESSELS The aortic root is normal in size. The ascending aorta is normal in size. The IVC is dilated and jong apses <50% with inspiration. PERICARDIAL EFFUSION There is no evidence of significant pericardial effusion. Critical Notification Critical Value: No <Conclusion> Left ventricle systolic function is severely impaired. The Ejection Fraction is 15-20%. There is severe global hypokinesis of the left ventricle. There is a pacemaker/ICD lead in the right ventricle. RV Systolic function is mildly reduced. Doppler and Color-flow revealed moderate mitral regurgitation. There is mild mitral valve stenosis. M G of 5 mm Hg. Probable mitral ring noted. Doppler and Color Flow revealed mild to moderate tricuspid regurgitation. There is moderate-severe pu lmonary hypertension. The PA pressure was estimated at 68 mmHg. Signed by : Diallo Pulliam, Electronically Approved : 07/11/2018 10:52:41
== END | disposition home or self-care (01) ==
LOC: ECHO 08:07
PROVIDERS: ATTEND Internal Medicine Cardiovascular Disease
DX: I08.8 Other rheumatic multiple valve diseases (principal); I27.20 Pulmonary hypertension, unspecified
CPT/HCPCS: 93306

== ENCOUNTER 2020-02-21 12:13 | Inpatient (IN) | payer MEDICARE ==
[~2020-02-21] VITALS: Ht 175.3 cm; Wt 76.5 kg
[~2020-02-21 12:13] MED LIST changes: +AMLO5TAB10 PO; -AMLO5TAB7 PO; +FURO-68 PO; +FURO-69 PO; -NITR0.4T SL; +NITR0.4T24 SL; +POTA15TA9 PO; +POTA20TA4 PO; +POTASSIUM CHLO10 ME1 PO
--- NOTE | 2020-02-21 13:06 | RAD ---
AP portable chest 02/21/2020. Reason for exam: Shortness of air. Comparison is made with a study of 01/15/2020. A pacemaker device remains in place. No new infiltrate or effusion is seen. The heart remains significantly enlarged. Pulmonary vascularity is not congested. IMPRESSION: Persistent cardiomegaly. No acute infiltrate or pulmonary edema. Electronically signed by: Vijay Watson Jr., MD (02/21/2020 1:03 PM) [id number]
[2020-02-21 13:07] LABS: BASO # 0.1 x10^3/uL (0.0-0.2); BASO % 1 % (0-3); EOS # 0.1 x10^3/uL (0.0-0.7); EOS % 1 % (0-3); HEMOGLOBIN 11.3 g/dL (13.0-17.5); LYMPH # 2.9 x10^3/uL (1.0-4.8); LYMPH % 35 % (24-48); MEAN CORPUSCULAR HEMOGLOBIN 25 pg (25-35); MEAN CORPUSCULAR HGB CONC 31 g/dL (31-37); MEAN CORPUSCULAR VOLUME 79 fL (79-100); MONO # 0.9 x10^3/uL (0.0-1.1); MONO % 11 % (0-9); NEUT # 4.3 x10^3/uL (1.8-7.7); NEUT % 53 % (31-73); PLATELET COUNT 299 x10^3/uL (140-400); RED BLOOD COUNT 4.58 x10^6/uL (4.30-5.70); RED CELL DISTRIBUTION WIDTH 20.3 % (11.5-14.5); WHITE BLOOD COUNT 8.1 x10^3/uL (4.0-11.0)
[2020-02-21 13:13] LABS: CALCIUM 9.2 mg/dL (8.5-10.1); CREATININE 1.4 mg/dL (0.7-1.3); GFR 63.2; POTASSIUM 3.7 mmol/L (3.5-5.1)
[2020-02-21 13:18] LABS: PROTHROMBIN TIME PATIENT 19.5 SEC (11.7-14.0)
[2020-02-21 13:21] LABS: ALBUMIN 3.6 g/dL (3.4-5.0); ALBUMIN/GLOBULIN RATIO 0.8 (1.0-1.7); TOTAL PROTEIN 8.4 g/dL (6.4-8.2)
[2020-02-21 13:29] LABS: ANISOCYTOSIS MOD; HYPOCHROMIA SLIGHT; PLT ESTIMATE ADEQUATE (ADEQUATE)
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
[2020-02-21] MEDS ORDERED: cefTRIAXone IV Push 1 GM VIAL. IVP ONE (14:00)
[2020-02-21] MEDS ORDERED: MORPHINE SULFATE 4 MG/ML VIAL. IV ONE (14:00)
[2020-02-21] MEDS ORDERED: PIPERACILLIN/TAZOBACTAM 3.375 GM in IV NORMAL SALINE 50ML 50 ML IV ONE (14:30)
[2020-02-21] MEDS ORDERED: fentaNYL PF VIAL 100 MCG/2 ML VIAL IVP ONE (14:45)
--- NOTE | 2020-02-21 14:48 | RAD ---
Right upper quadrant abdominal ultrasound History: Reason: ruq abdominal pain / Spl. Instructions: / History: Comparison: Limited abdominal ultrasound, January 16, 2020.. Technique: Transabdominal ultrasound images are obtained. Findings: Pancreas is obscured due to overlying bowel gas. Liver is normal in echogenicity. Right hepatic lobe measures 19.4 cm. Portal flow is hepatopedal. There is borderline gallbladder wall thickening. The appearance is unchanged from prior study. There is no cholelithiasis. There is no report of positive sonographic Givens's sign. Common bile duct caliber is normal measuring 3 mm in diameter. The right kidney measures 11.1 cm in length. There is no hydronephrosis. IVC is patent. Trace abdominal ascites is seen in right abdomen. No free fluid in the left abdomen. IMPRESSION: 1. Hepatomegaly. 2. Borderline gallbladder wall thickening. 3. Trace abdominal ascites. Electronically signed by: Justyn Kelly MD (02/21/2020 2:45 PM) [id number]
[2020-02-21] MEDS ORDERED: PIP/TAZO PER PHARMACY MC PRN (15:30)
[2020-02-21] MEDS: MORPHINE SULFATE 4 MG/ML VIAL. IV PRN (17:43)
[2020-02-21] MEDS: ONDANSETRON PF 4 MG/2 ML VIAL. IV PRN (17:51)
[2020-02-21 18:15] VITALS: BP 136/95
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
[2020-02-21] MEDS ORDERED: FUROSEMIDE 40 MG/4 ML VIAL. IVP ONE (18:30)
[2020-02-21 19:00] VITALS: BP 139/100
[2020-02-21 23:00] VITALS: BP 137/102
[2020-02-21] MEDS: CARVEDILOL 12.5 MG TABLET. PO SCH (23:24)
[2020-02-21] MEDS: SACUBITRIL/VALSARTAN 24/26MG TABLET. PO SCH (23:24)
[2020-02-21] MEDS: PIPERACILLIN/TAZOBACTAM 3.375 GM in IV NORMAL SALINE 50ML 50 ML IV SCH (23:46)
[2020-02-22] MEDS: MORPHINE SULFATE 4 MG/ML VIAL. IV PRN (00:57)
--- NOTE | 2020-02-22 03:00 | NUR ---
Pt is nauseated and vomited approx 200 cc of bile/emesis. Pt states that he now feels better and just wants to rest. Will give zofran when time. Call light within reach. Will continue to monitor.
[2020-02-22 03:12] VITALS: BP 106/77
[2020-02-22 04:30] LABS: BASO # 0.1 x10^3/uL (0.0-0.2); BASO % 1 % (0-3); EOS % 1 % (0-3); HEMATOCRIT 32.7 % (39.0-53.0); HEMOGLOBIN 10.2 g/dL (13.0-17.5); LYMPH # 1.3 x10^3/uL (1.0-4.8); LYMPH % 22 % (24-48); MEAN CORPUSCULAR HEMOGLOBIN 24 pg (25-35); MEAN CORPUSCULAR HGB CONC 31 g/dL (31-37); MEAN CORPUSCULAR VOLUME 78 fL (79-100); MONO # 0.8 x10^3/uL (0.0-1.1); MONO % 13 % (0-9); NEUT % 65 % (31-73); PLATELET COUNT 264 x10^3/uL (140-400); RED BLOOD COUNT 4.18 x10^6/uL (4.30-5.70); WHITE BLOOD COUNT 6.2 x10^3/uL (4.0-11.0)
[2020-02-22 04:46] LABS: CALCIUM 9.1 mg/dL (8.5-10.1); CREATININE 1.9 mg/dL (0.7-1.3); GFR 44.4; POTASSIUM 3.8 mmol/L (3.5-5.1)
[2020-02-22] MEDS: PIPERACILLIN/TAZOBACTAM 3.375 GM in IV NORMAL SALINE 50ML 50 ML IV SCH ×4 (06:43→23:40)
[2020-02-22 07:15] VITALS: BP 104/71
[2020-02-22] MEDS: FUROSEMIDE 40 MG TABLET. PO SCH (10:54)
[2020-02-22] MEDS: CARVEDILOL 12.5 MG TABLET. PO SCH ×2 (10:54→16:28)
[2020-02-22] MEDS: POTASSIUM CHLORIDE 20 MEQ TABLET.ER. PO SCH (10:55)
[2020-02-22] MEDS: SACUBITRIL/VALSARTAN 24/26MG TABLET. PO SCH ×2 (10:55→21:00)
[2020-02-22] MEDS: ONDANSETRON PF 4 MG/2 ML VIAL. IV PRN (10:59)
[2020-02-22 11:15] VITALS: BP 101/71
--- NOTE | 2020-02-22 12:22 | PDOC ---
[employer] PROGRESS NOTE Chief Complaint Chief Complaint Acute right upper quadrant abdominal pain SOA CHF with reduced EF BLE edema Ascites Hepatomegaly HTN CAD s/p CABG History of Present Illness History of Present Illness 02/22/2020 Patient seen and examined Laying down in bed, NAD RUQ pain improved since admit Discussed with RN Vitals/I&O Vitals/I&O: Vital Signs Date Time Temp Pulse Resp B/P (MAP) Pulse Ox O2 Delivery O2 Flow Rate FiO2 02/22/20 10:55 64 104/71 02/22/20 07:15 97.0 16 98 Room Air 97.0 I & O 02/21/20 02/21/20 02/22/20 15:00 23:00 07:00 Intake Total 50 ml 50 ml Output Total 650 ml Balance 50 ml -600 ml Physical Exam Physical Exam: General: Alert, Oriented X3, Cooperative, no acute distress HEENT: Atraumatic, PERRLA Lungs: Clear to auscultation Heart: RRR, no thrills, irregularly irregular Abdomen: Normal bowel sounds, soft, fullness, tender RUQ. Extremities: Other (2+ BLE edema) Skin: No rashes Neuro: Normal speech, Normal tone, Sensation intact Psych/Mental Status: Mood NL General: Alert, Oriented X3, Cooperative, No acute distress Heart: Normal S1, Normal S2 Lungs: Clear Abdomen: Normal bowel sounds, Soft (fullness, tender RUQ) Extremities: Other (2+ BLE edema) Skin: No rashes Labs Labs: Laboratory Tests Test 02/21/20 12:50 02/21/20 15:05 02/21/20 17:40 02/22/20 00:30 White Blood Count 8.1 x10^3/uL (4.0-11.0) Red Blood Count 4.58 x10^6/uL (4.30-5.70) Hemoglobin 11.3 g/dL (13.0-17.5) Hematocrit 36.0 % (39.0-53.0) Mean Corpuscular Volume 79 fL (79-100) Mean Corpuscular Hemoglobin 25 pg (25-35) Mean Corpuscular Hemoglobin Concent 31 g/dL (31-37) Red Cell Distribution Width 20.3 % (11.5-14.5) Platelet Count 299 x10^3/uL (140-400) Neutrophils (%) (Auto) 53 % (31-73) Lymphocytes (%) (Auto) 35 % (24-48) Monocytes (%) (Auto) 11 % (0-9) Eosinophils (%) (Auto) 1 % (0-3) Basophils (%) (Auto) 1 % (0-3) Neutrophils # (Auto) 4.3 x10^3/uL (1.8-7.7) Lymphocytes # (Auto) 2.9 x10^3/uL (1.0-4.8) Monocytes # (Auto) 0.9 x10^3/uL (0.0-1.1) Eosinophils # (Auto) 0.1 x10^3/uL (0.0-0.7) Basophils # (Auto) 0.1 x10^3/uL (0.0-0.2) Platelet Estimate Adequate (ADEQUATE) Large Platelets Few Hypochromasia Slight Anisocytosis Mod Prothrombin Time 19.5 SEC (11.7-14.0) Prothromb Time International Ratio 1.7 (0.8-1.1) Activated Partial Thromboplast Time 34 SEC (24-38) Sodium Level 131 mmol/L (136-145) Potassium Level 3.7 mmol/L (3.5-5.1) Chloride Level 96 mmol/L (98-107) Carbon Dioxide Level 26 mmol/L (21-32) Anion Gap 9 (6-14) Blood Urea Nitrogen 22 mg/dL (8-26) Creatinine 1.4 mg/dL (0.7-1.3) Estimated GFR (Cockcroft-Gault) 63.2 BUN/Creatinine Ratio 16 (6-20) Glucose Level 95 mg/dL (70-99) Lactic Acid Level 3.9 mmol/L (0.4-2.0) 2.8 mmol/L (0.4-2.0) 3.6 mmol/L (0.4-2.0) Calcium Level 9.2 mg/dL (8.5-10.1) Total Bilirubin 4.0 mg/dL (0.2-1.0) Aspartate Amino Transf (AST/SGOT) 159 U/L (15-37) Alanine Aminotransferase (ALT/SGPT) 117 U/L (16-63) Alkaline Phosphatase 259 U/L (46-116) Troponin I Quantitative 0.090 ng/mL (0.000-0.055) 0.392 ng/mL (0.000-0.055) KJ-[id number]-Z-Type Natriuretic Peptide 5363 pg/mL (0-124) Total Protein 8.4 g/dL (6.4-8.2) Albumin 3.6 g/dL (3.4-5.0) Albumin/Globulin Ratio 0.8 (1.0-1.7) Lipase 196 U/L (73-393) SARS-CoV-2 Antigen (Rapid) Negative (NEGATIVE) Test 02/22/20 04:15 02/22/20 09:10 White Blood Count 6.2 x10^3/uL (4.0-11.0) Red Blood Count 4.18 x10^6/uL (4.30-5.70) Hemoglobin 10.2 g/dL (13.0-17.5) Hematocrit 32.7 % (39.0-53.0) Mean Corpuscular Volume 78 fL (79-100) Mean Corpuscular Hemoglobin 24 pg (25-35) Mean Corpuscular Hemoglobin Concent 31 g/dL (31-37) Red Cell Distribution Width 21.0 % (11.5-14.5) Platelet Count 264 x10^3/uL (140-400) Neutrophils (%) (Auto) 65 % (31-73) Lymphocytes (%) (Auto) 22 % (24-48) Monocytes (%) (Auto) 13 % (0-9) Eosinophils (%) (Auto) 1 % (0-3) Basophils (%) (Auto) 1 % (0-3) Neutrophils # (Auto) 4.0 x10^3/uL (1.8-7.7) Lymphocytes # (Auto) 1.3 x10^3/uL (1.0-4.8) Monocytes # (Auto) 0.8 x10^3/uL (0.0-1.1) Eosinophils # (Auto) 0.0 x10^3/uL (0.0-0.7) Basophils # (Auto) 0.1 x10^3/uL (0.0-0.2) Sodium Level 134 mmol/L (136-145) Potassium Level 3.8 mmol/L (3.5-5.1) Chloride Level 97 mmol/L (98-107) Carbon Dioxide Level 29 mmol/L (21-32) Anion Gap 8 (6-14) Blood Urea Nitrogen 26 mg/dL (8-26) Creatinine 1.9 mg/dL (0.7-1.3) Estimated GFR (Cockcroft-Gault) 44.4 Glucose Level 130 mg/dL (70-99) Lactic Acid Level 2.3 mmol/L (0.4-2.0) 1.5 mmol/L (0.4-2.0) Calcium Level 9.1 mg/dL (8.5-10.1) Troponin I Quantitative 1.388 ng/mL (0.000-0.055) Review of Systems Review of Systems: Pertinent as per HPI, otherwise 10 point review of systems is negative. Assessment and Plan Assessmemt and Plan Problems Medical Problems: (1) Abdominal pain Status: Acute (2) Hepatitis Status: Acute ASSESSMENT Acute right upper quadrant abdominal pain SOA CHF with reduced EF BLE edema Ascites Hepatomegaly HTN CAD s/p CABG PLAN Cardiac monitoring Consult surgery for possible cholecystectomy GI and cardiology consults IV Lasix IV fluids IV antibiotics Home medications Trend labs DVT prophylaxis Full code Comment Review of Relevant I have reviewed the following items rob (where applicable) has been applied. Medications: Current Medications Medications (Trade) Dose Ordered Sig/Amado Route PRN Reason Start Time Stop Time Status Last Admin Dose Admin Ceftriaxone Sodium (Rocephin) 1 gm 1X ONCE IVP 02/21/20 14:00 02/21/20 14:27 DC 02/21/20 14:22 Morphine Sulfate (Morphine Sulfate) 4 mg 1X ONCE IV 02/21/20 14:00 02/21/20 14:01 DC 02/21/20 14:22 Piperacillin Sod/ Tazobactam Sod 3.375 gm/Sodium Chloride 50 ml @ 100 mls/hr 1X ONCE IV 02/21/20 14:30 02/21/20 14:59 DC 02/21/20 15:02 Fentanyl Citrate (Fentanyl 2ml Vial) 75 mcg 1X ONCE IVP 02/21/20 14:45 02/21/20 14:48 DC 02/21/20 15:01 Ondansetron HCl (Zofran) 4 mg PRN Q8HRS PRN IV NAUSEA/VOMITING 02/21/20 15:30 02/22/20 15:29 02/22/20 10:59 Morphine Sulfate (Morphine Sulfate) 4 mg PRN Q2HR PRN IV PAIN 02/21/20 15:30 02/22/20 15:29 02/22/20 00:57 Piperacillin Sod/ Tazobactam Sod 3.375 gm/Sodium Chloride 50 ml @ 100 mls/hr Q6HRS IV 02/22/20 00:00 02/22/20 06:43 Carvedilol (Coreg) 12.5 mg BIDWMEALS PO 02/21/20 18:30 02/22/20 10:54 Furosemide (Lasix) 40 mg DAILY PO 02/22/20 09:00 02/22/20 10:54 Potassium Chloride (Klor-Con) 20 meq DAILY PO 02/22/20 09:00 02/22/20 10:55 Sacubitril/ Valsartan (Entresto 24 Mg-26 Mg) 1 tab BID PO 02/21/20 21:00 02/22/20 10:55 Furosemide (Lasix) 40 mg 1X ONCE IVP 02/21/20 18:30 02/21/20 18:43 DC 02/21/20 23:24 Justicifation of Admission Dx: Justifications for Admission: Justification of Admission Dx: Yes ELIJAH PEÑALOZA III DO Feb 22, 2020 12:22
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
[2020-02-22 15:15] VITALS: BP 104/72
--- NOTE | 2020-02-22 15:35 | PDOC2 ---
CONSULT Date of Consult Date of Consult DATE: 02/22/20 TIME: 15:29 Reason for Consult Reason for Consult: cholecystitis Referring Physician Referring Physician: Dr. Aquino Identification/Chief Complaint Chief Complaint RUQ abd pain, nausea Source Source: Chart review, Patient History of Present Illness Reason for Visit: 59 yo M with c/o RUQ pain and nausea over several days prompting admission. Pt with history of CHF and previous visit for elevated LFTs. Pt does feels somewhat better with meds and admission. Past Medical History Cardiovascular: CAD, CHF, HTN, Valve insufficiency GI: No pertinent hx Heme/Onc: No pertinent hx Hepatobiliary: No pertinent hx Psych: No pertinent hx, Addictions Rheumatologic: No pertinent hx Infectious disease: No pertinent hx Renal/: No pertinent hx Endocrine: No pertinent hx Past Surgical History Past Surgical History: CABG, Other Family History Family History: Coronary Artery Disease, Heart Disease, Hypertension Social History ALCOHOL: none Drugs: Marijuana Lives: with Family Current Problem List Problem List Problems Medical Problems: (1) Abdominal pain Status: Acute (2) Hepatitis Status: Acute Current Medications Current Medications Current Medications Ceftriaxone Sodium (Rocephin) 1 gm 1X ONCE IVP Last administered on 02/21/20at 14:22; Start 02/21/20 at 14:00; Stop 02/21/20 at 14:27; Status DC Morphine Sulfate (Morphine Sulfate) 4 mg 1X ONCE IV Last administered on 02/21/20at 14:22; Start 02/21/20 at 14:00; Stop 02/21/20 at 14:01; Status DC Piperacillin Sod/ Tazobactam Sod 3.375 gm/Sodium Chloride 50 ml @ 100 mls/hr 1X ONCE IV Last administered on 02/21/20at 15:02; Start 02/21/20 at 14:30; Stop 02/21/20 at 14:59; Status DC Fentanyl Citrate (Fentanyl 2ml Vial) 75 mcg 1X ONCE IVP Last administered on 02/21/20at 15:01; Start 02/21/20 at 14:45; Stop 02/21/20 at 14:48; Status DC Ondansetron HCl (Zofran) 4 mg PRN Q8HRS PRN IV NAUSEA/VOMITING Last adm inistered on 02/22/20at 10:59; Start 02/21/20 at 15:30; Stop 02/22/20 at 15:29 Morphine Sulfate (Morphine Sulfate) 4 mg PRN Q2HR PRN IV PAIN Last administered on 02/22/20at 00:57; Start 02/21/20 at 15:30; Stop 02/22/20 at 15:29 Piperacillin Sod/ Tazobactam Sod (Zosyn Per Pharmacy) 1 each PRN DAILY PRN MC SEE COMMENTS; Start 02/21/20 at 15:30 Piperacillin Sod/ Tazobactam Sod 3.375 gm/Sodium Chloride 50 ml @ 100 mls/hr Q6HRS IV Last administered on 02/22/20at 13:07; Start 02/22/20 at 00:00 Carvedilol (Coreg) 12.5 mg BIDWMEALS PO Last administered on 02/22/20at 10:54; Start 02/21/20 at 18:30 Furosemide (Lasix) 40 mg DAILY PO Last administered on 02/22/20at 10:54; Start 02/22/20 at 09:00 Potassium Chloride (Klor-Con) 20 meq DAILY PO Last administered on 02/22/20at 10:55; Start 02/22/20 at 09:00 Sacubitril/ Valsartan (Entresto 24 Mg-26 Mg) 1 tab BID PO Last administered on 02/22/20at 10:55; Start 02/21/20 at 21:00 Furosemide (Lasix) 40 mg 1X ONCE IVP Last administered on 02/21/20at 23:24; Start 02/21/20 at 18:30; Stop 02/21/20 at 18:43; Status DC Oxycodone HCl (Roxicodone) 5 mg PRN Q6HRS PRN PO PAIN; Start 02/21/20 at 19:30 Fentanyl Citrate (Fentanyl 2ml Vial) 50 mcg PRN Q2HR PRN IVP PAIN; Start 02/21/20 at 19:30 Pantoprazole Sodium (Protonix) 40 mg DAILYAC PO ; Start 02/22/20 at 15:00 Active Scripts Active Lasix (Furosemide) 40 Mg Tablet 1 Tab PO DAILY 30 Days Naprosyn (Naproxen) 500 Mg Tablet 1 Tab PO BID Entresto 24 mg-26 mg Tablet (Sacubitril/Valsartan) 1 Each Tablet 1 Tab PO BID Reported Potassium Chloride (Potassium Chloride) 20 Meq Tablet.er 20 Meq PO DAILY Aspir 81 (Aspirin) 81 Mg Tablet.dr 81 Mg PO BID Coreg (Carvedilol) 12.5 Mg Tablet 12.5 Mg PO BIDWMEALS Allergies Allergies: Coded Allergies: No Known Drug Allergies (Unverified , 04/04/17) ROS Gastrointestinal: Yes Nausea, Yes Abdominal Pain Physical Exam General: Alert, Oriented X3, Cooperative, No acute distress HEENT: Atraumatic Lungs: Normal air movement Abdomen: Soft, Other (mild TTP RUQ) Skin: No rashes, No breakdown Neuro: Normal speech, Sensation intact Psych/Mental Status: Mental status NL, Mood NL Vitals VITALS Vital Signs Date Time Temp Pulse Resp B/P (MAP) Pulse Ox O2 Delivery O2 Flow Rate FiO2 02/22/20 11:15 96.5 65 20 101/71 (81) 96 Room Air 96.5 Labs Labs Laboratory Tests Test 02/21/20 12:50 02/21/20 15:05 02/21/20 17:40 02/22/20 00:30 White Blood Count 8.1 x10^3/uL (4.0-11.0) Red Blood Count 4.58 x10^6/uL (4.30-5.70) Hemoglobin 11.3 g/dL (13.0-17.5) Hematocrit 36.0 % (39.0-53.0) Mean Corpuscular Volume 79 fL (79-100) Mean Corpuscular Hemoglobin 25 pg (25-35) Mean Corpuscular Hemoglobin Concent 31 g/dL (31-37) Red Cell Distribution Width 20.3 % (11.5-14.5) Platelet Count 299 x10^3/uL (140-400) Neutrophils (%) (Auto) 53 % (31-73) Lymphocytes (%) (Auto) 35 % (24-48) Monocytes (%) (Auto) 11 % (0-9) Eosinophils (%) (Auto) 1 % (0-3) Basophils (%) (Auto) 1 % (0-3) Neutrophils # (Auto) 4.3 x10^3/uL (1.8-7.7) Lymphocytes # (Auto) 2.9 x10^3/uL (1.0-4.8) Monocytes # (Auto) 0.9 x10^3/uL (0.0-1.1) Eosinophils # (Auto) 0.1 x10^3/uL (0.0-0.7) Basophils # (Auto) 0.1 x10^3/uL (0.0-0.2) Platelet Estimate Adequate (ADEQUATE) Large Platelets Few Hypochromasia Slight Anisocytosis Mod Prothrombin Time 19.5 SEC (11.7-14.0) Prothromb Time International Ratio 1.7 (0.8-1.1) Activated Partial Thromboplast Time 34 SEC (24-38) Sodium Level 131 mmol/L (136-145) Potassium Level 3.7 mmol/L (3.5-5.1) Chloride Level 96 mmol/L (98-107) Carbon Dioxide Level 26 mmol/L (21-32) Anion Gap 9 (6-14) Blood Urea Nitrogen 22 mg/dL (8-26) Creatinine 1.4 mg/dL (0.7-1.3) Estimated GFR (Cockcroft-Gault) 63.2 BUN/Creatinine Ratio 16 (6-20) Glucose Level 95 mg/dL (70-99) Lactic Acid Level 3.9 mmol/L (0.4-2.0) 2.8 mmol/L (0.4-2.0) 3.6 mmol/L (0.4-2.0) Calcium Level 9.2 mg/dL (8.5-10.1) Total Bilirubin 4.0 mg/dL (0.2-1.0) Aspartate Amino Transf (AST/SGOT) 159 U/L (15-37) Alanine Aminotransferase (ALT/SGPT) 117 U/L (16-63) Alkaline Phosphatase 259 U/L (46-116) Troponin I Quantitative 0.090 ng/mL (0.000-0.055) 0.392 ng/mL (0.000-0.055) HH-Dnc-F-Type Natriuretic Peptide 5363 pg/mL (0-124) Total Protein 8.4 g/dL (6.4-8.2) Albumin 3.6 g/dL (3.4-5.0) Albumin/Globulin Ratio 0.8 (1.0-1.7) Lipase 196 U/L (73-393) SARS-CoV-2 Antigen (Rapid) Negative (NEGATIVE) Test 02/22/20 04:15 02/22/20 09:10 White Blood Count 6.2 x10^3/uL (4.0-11.0) Red Blood Count 4.18 x10^6/uL (4.30-5.70) Hemoglobin 10.2 g/dL (13.0-17.5) Hematocrit 32.7 % (39.0-53.0) Mean Corpuscular Volume 78 fL (79-100) Mean Corpuscular Hemoglobin 24 pg (25-35) Mean Corpuscular Hemoglobin Concent 31 g/dL (31-37) Red Cell Distribution Width 21.0 % (11.5-14.5) Platelet Count 264 x10^3/uL (140-400) Neutrophils (%) (Auto) 65 % (31-73) Lymphocytes (%) (Auto) 22 % (24-48) Monocytes (%) (Auto) 13 % (0-9) Eosinophils (%) (Auto) 1 % (0-3) Basophils (%) (Auto) 1 % (0-3) Neutrophils # (Auto) 4.0 x10^3/uL (1.8-7.7) Lymphocytes # (Auto) 1.3 x10^3/uL (1.0-4.8) Monocytes # (Auto) 0.8 x10^3/uL (0.0-1.1) Eosinophils # (Auto) 0.0 x10^3/uL (0.0-0.7) Basophils # (Auto) 0.1 x10^3/uL (0.0-0.2) Sodium Level 134 mmol/L (136-145) Potassium Level 3.8 mmol/L (3.5-5.1) Chloride Level 97 mmol/L (98-107) Carbon Dioxide Level 29 mmol/L (21-32) Anion Gap 8 (6-14) Blood Urea Nitrogen 26 mg/dL (8-26) Creatinine 1.9 mg/dL (0.7-1.3) Estimated GFR (Cockcroft-Gault) 44.4 Glucose Level 130 mg/dL (70-99) Lactic Acid Level 2.3 mmol/L (0.4-2.0) 1.5 mmol/L (0.4-2.0) Calcium Level 9.1 mg/dL (8.5-10.1) Iron Level 15 ug/dL (65-175) Total Iron Binding Capacity 362 ug/dL (250-450) Iron Saturation 4 % (15-34) Troponin I Quantitative 1.388 ng/mL (0.000-0.055) Laboratory Tests Test 02/21/20 17:40 02/22/20 00:30 02/22/20 04:15 02/22/20 09:10 Lactic Acid Level 2.8 mmol/L (0.4-2.0) 3.6 mmol/L (0.4-2.0) 2.3 mmol/L (0.4-2.0) 1.5 mmol/L (0.4-2.0) Troponin I Quantitative 0.392 ng/mL (0.000-0.055) 1.388 ng/mL (0.000-0.055) White Blood Count 6.2 x10^3/uL (4.0-11.0) Red Blood Count 4.18 x10^6/uL (4.30-5.70) Hemoglobin 10.2 g/dL (13.0-17.5) Hematocrit 32.7 % (39.0-53.0) Mean Corpuscular Volume 78 fL (79-100) Mean Corpuscular Hemoglobin 24 pg (25-35) Mean Corpuscular Hemoglobin Concent 31 g/dL (31-37) Red Cell Distribution Width 21.0 % (11.5-14.5) Platelet Count 264 x10^3/uL (140-400) Neutrophils (%) (Auto) 65 % (31-73) Lymphocytes (%) (Auto) 22 % (24-48) Monocytes (%) (Auto) 13 % (0-9) Eosinophils (%) (Auto) 1 % (0-3) Basophils (%) (Auto) 1 % (0-3) Neutrophils # (Auto) 4.0 x10^3/uL (1.8-7.7) Lymphocytes # (Auto) 1.3 x10^3/uL (1.0-4.8) Monocytes # (Auto) 0.8 x10^3/uL (0.0-1.1) Eosinophils # (Auto) 0.0 x10^3/uL (0.0-0.7) Basophils # (Auto) 0.1 x10^3/uL (0.0-0.2) Sodium Level 134 mmol/L (136-145) Potassium Level 3.8 mmol/L (3.5-5.1) Chloride Level 97 mmol/L (98-107) Carbon Dioxide Level 29 mmol/L (21-32) Anion Gap 8 (6-14) Blood Urea Nitrogen 26 mg/dL (8-26) Creatinine 1.9 mg/dL (0.7-1.3) Estimated GFR (Cockcroft-Gault) 44.4 Glucose Level 130 mg/dL (70-99) Calcium Level 9.1 mg/dL (8.5-10.1) Iron Level 15 ug/dL (65-175) Total Iron Binding Capacity 362 ug/dL (250-450) Iron Saturation 4 % (15-34) Images Images hepatomegaly, gallbladder wall thickening. Assessment/Plan Assessment/Plan cholecystitis however, favor this is secondary to congestive liver disease, which is secondary to CHF. agree with plans per GI to treat CHF Regardless, pt is prohibitive surgical candidate, given CHF Thanks for consult! GOSIA RUIZ MD Feb 22, 2020 15:35
[2020-02-22] MEDS: PANTOPRAZOLE 40 MG TABLET.DR. PO SCH (16:27)
--- NOTE | 2020-02-22 17:47 | PDOC2 ---
CARDIOLOGY CONSULT NOTE CHIEF COMPLAINT: Abd pain/nausea HPI: 59 y.o well known to our service presenting with GI symptoms. [place] to be due to congestive hepatopathy. He denies any chest pain. Has has chronic dyspnea, worsened recently. He has had LE edema. No syncope or palpitations. PMHX: 1. CAD s/p one vessel CABG with SVG to RCA and mitral ring 2. HTN 3. ICMP, EF 15% 4. Secondary P. HTN SOCHX: +polysubstance abuse FAMHX: NC CURRENT MEDS: Current Medications Medications (Trade) Dose Ordered Sig/Amado Route PRN Reason Start Time Stop Time Status Last Admin Dose Admin Piperacillin Sod/ Tazobactam Sod 3.375 gm/Sodium Chloride 50 ml @ 100 mls/hr Q6HRS IV 02/22/20 00:00 02/22/20 13:07 Carvedilol (Coreg) 12.5 mg BIDWMEALS PO 02/21/20 18:30 02/22/20 16:28 Furosemide (Lasix) 40 mg DAILY PO 02/22/20 09:00 02/22/20 10:54 Potassium Chloride (Klor-Con) 20 meq DAILY PO 02/22/20 09:00 02/22/20 10:55 Sacubitril/ Valsartan (Entresto 24 Mg-26 Mg) 1 tab BID PO 02/21/20 21:00 02/22/20 10:55 Furosemide (Lasix) 40 mg 1X ONCE IVP 02/21/20 18:30 02/21/20 18:43 DC 02/21/20 23:24 Pantoprazole Sodium (Protonix) 40 mg DAILYAC PO 02/22/20 15:00 02/22/20 16:27 ALLERGIES: Allergies Coded Allergies Type Severity Reaction Last Updated Verified No Known Drug Allergies 04/04/17 No ROS: Negative for 05/05 systems reviewed unless noted above in HPI PHYSICAL EXAM: Vital Signs/I&O: Vital Signs Date Time Temp Pulse Resp B/P (MAP) Pulse Ox O2 Delivery O2 Flow Rate FiO2 02/22/20 16:28 66 104/72 02/22/20 11:15 96.5 20 96 Room Air 96.5 I & O 02/21/20 02/21/20 02/22/20 15:00 23:00 07:00 Intake Total 50 ml 50 ml Output Total 650 ml Balance 50 ml -600 ml Physical Exam: GEN.: No apparent distress. Alert and oriented. HEENT: Head is normocephalic, atraumatic NECK: Supple. LUNGS: Clear to auscultation. HEART: RRR, S1, S2 present. Peripheral pulses intact ABDOMEN: obese, protrubent EXTREMITIES: Without any cyanosis.1+ edema. NEUROLOGIC: Normal speech, normal tone PSYCHIATRIC: Normal affect, normal mood. SKIN: No ulcerations DIAGNOSTIC TESTING: Lab Laboratory Tests Test 02/21/20 17:40 02/22/20 00:30 02/22/20 04:15 02/22/20 09:10 Lactic Acid Level 2.8 mmol/L (0.4-2.0) H 3.6 mmol/L (0.4-2.0) H 2.3 mmol/L (0.4-2.0) H 1.5 mmol/L (0.4-2.0) White Blood Count 6.2 x10^3/uL (4.0-11.0) Red Blood Count 4.18 x10^6/uL (4.30-5.70) L Hemoglobin 10.2 g/dL (13.0-17.5) L Hematocrit 32.7 % (39.0-53.0) L Mean Corpuscular Volume 78 fL (79-100) L Mean Corpuscular Hemoglobin 24 pg (25-35) L Mean Corpuscular Hemoglobin Concent 31 g/dL (31-37) Red Cell Distribution Width 21.0 % (11.5-14.5) H Platelet Count 264 x10^3/uL (140-400) Neutrophils (%) (Auto) 65 % (31-73) Lymphocytes (%) (Auto) 22 % (24-48) L Monocytes (%) (Auto) 13 % (0-9) H Eosinophils (%) (Auto) 1 % (0-3) Basophils (%) (Auto) 1 % (0-3) Neutrophils # (Auto) 4.0 x10^3/uL (1.8-7.7) Lymphocytes # (Auto) 1.3 x10^3/uL (1.0-4.8) Monocytes # (Auto) 0.8 x10^3/uL (0.0-1.1) Eosinophils # (Auto) 0.0 x10^3/uL (0.0-0.7) Basophils # (Auto) 0.1 x10^3/uL (0.0-0.2) Sodium Level 134 mmol/L (136-145) L Potassium Level 3.8 mmol/L (3.5-5.1) Chloride Level 97 mmol/L (98-107) L Carbon Dioxide Level 29 mmol/L (21-32) Anion Gap 8 (6-14) Blood Urea Nitrogen 26 mg/dL (8-26) Creatinine 1.9 mg/dL (0.7-1.3) H Estimated GFR (Cockcroft-Gault) 44.4 Glucose Level 130 mg/dL (70-99) H Calcium Level 9.1 mg/dL (8.5-10.1) Iron Level 15 ug/dL (65-175) L Total Iron Binding Capacity 362 ug/dL (250-450) Iron Saturation 4 % (15-34) L Laboratory Tests 02/22/20 04:15 ASSESSMENT: 1. Acute on chronic systolic and diastolic HF 2. 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 s/p ICD for ischemic CMP PLAN: 1. Plan for a RHC tomorrow if COVID negative to determine filling pressures etc and mgmt of heart failure. He may need ionotropic support to go home with. I discussed with him that he will likely need cardiac transplantation in the near future. KASSIDY EPPERSON MD Feb 22, 2020 17:47
[2020-02-22 19:10] VITALS: BP 92/55
[2020-02-22 21:24] LABS: BILIRUBIN,URINE NEGATIVE (NEG); CLARITY,URINE CLEAR; COLOR,URINE YELLOW; NITRITE,URINE NEGATIVE (NEG); PROTEIN,URINE NEGATIVE (NEG-TRACE)
[2020-02-22 21:28] LABS: SQUAMOUS EPITHELIAL CELL,UR FEW /LPF
[2020-02-22 21:29] LABS: AMORPHOUS SEDIMENT,UR PRESENT /HPF; BACTERIA,URINE 0 /HPF (0-FEW); RBC,URINE TNTC /HPF (0-2)
[2020-02-22 21:47] LABS: BARBITURATES NEG (NEG); BENZODIAZEPINES NEG (NEG); CANNABINOIDS POS (NEG); COCAINE NEG (NEG); METHADONE NEG (NEG); OPIATES POS (NEG); PHENCYCLIDINE NEG (NEG)
[2020-02-22 21:48] LABS: AMPHETAMINE/METHAMPHETAMINE NEG (NEG)
[2020-02-22 23:53] VITALS: BP 108/67
[2020-02-23] VITALS (8 sets, daily range): BP systolic 87–121; BP diastolic 59–82
[2020-02-23 05:37] LABS: BASO % 1 % (0-3); EOS % 1 % (0-3); HEMATOCRIT 33.5 % (39.0-53.0); HEMOGLOBIN 10.6 g/dL (13.0-17.5); LYMPH # 1.3 x10^3/uL (1.0-4.8); LYMPH % 22 % (24-48); MEAN CORPUSCULAR HEMOGLOBIN 25 pg (25-35); MEAN CORPUSCULAR HGB CONC 32 g/dL (31-37); MEAN CORPUSCULAR VOLUME 78 fL (79-100); MONO # 0.6 x10^3/uL (0.0-1.1); MONO % 9 % (0-9); NEUT # 3.9 x10^3/uL (1.8-7.7); NEUT % 67 % (31-73); PLATELET COUNT 234 x10^3/uL (140-400); RED BLOOD COUNT 4.32 x10^6/uL (4.30-5.70); RED CELL DISTRIBUTION WIDTH 20.5 % (11.5-14.5); WHITE BLOOD COUNT 5.9 x10^3/uL (4.0-11.0)
[2020-02-23] MEDS: PIPERACILLIN/TAZOBACTAM 3.375 GM in IV NORMAL SALINE 50ML 50 ML IV SCH ×4 (05:44→23:33)
[2020-02-23 05:53] LABS: CALCIUM 8.4 mg/dL (8.5-10.1); CREATININE 1.9 mg/dL (0.7-1.3); GFR 44.4; POTASSIUM 3.4 mmol/L (3.5-5.1)
[2020-02-23] MEDS: CARVEDILOL 12.5 MG TABLET. PO SCH ×2 (08:00→16:55)
--- NOTE | 2020-02-23 08:53 | NUR ---
Spoke to Lucas in [facility] regarding pts COVID results as we have only recieved the rapid result and not the other swab back. [facility] would prefer to wait until result is back. Will plan for NPO at midnight tonight for HIDA scan in the morning. Spoke to Dress Shoe Inspector as well and explained the covid swab situation. Pt ok to eat breakfast and take meds this am and plan for heart cath this afternoon if second result is back or Dr. Pulliam would like to still go forward with heart cath despite only having rapid result. Explained the situation to the pt and he states full understanding.
[2020-02-23] MEDS: SACUBITRIL/VALSARTAN 24/26MG TABLET. PO SCH ×2 (09:00→21:18)
--- NOTE | 2020-02-23 09:03 | PDOC ---
SURGICAL PROGRESS NOTE Subjective continued pain right abdomen no emesis Vital Signs Vital Signs Date Time Temp Pulse Resp B/P (MAP) Pulse Ox O2 Delivery O2 Flow Rate FiO2 02/23/20 07:00 98.2 73 17 121/82 (95) 100 Room Air 98.2 I&O Intake and Output 02/23/20 07:00 Intake Total 300 ml Output Total 2100 ml Balance -1800 ml Intake Oral 200 ml IV Total 100 ml Output Urine Total 2100 ml # Voids 2 General: Alert, Oriented X3, Cooperative Abdomen: Soft, Other (RUQ TTP) Labs Laboratory Tests Test 02/21/20 12:50 02/21/20 15:05 02/21/20 17:40 02/22/20 00:30 White Blood Count 8.1 x10^3/uL (4.0-11.0) Red Blood Count 4.58 x10^6/uL (4.30-5.70) Hemoglobin 11.3 g/dL (13.0-17.5) Hematocrit 36.0 % (39.0-53.0) Mean Corpuscular Volume 79 fL (79-100) Mean Corpuscular Hemoglobin 25 pg (25-35) Mean Corpuscular Hemoglobin Concent 31 g/dL (31-37) Red Cell Distribution Width 20.3 % (11.5-14.5) Platelet Count 299 x10^3/uL (140-400) Neutrophils (%) (Auto) 53 % (31-73) Lymphocytes (%) (Auto) 35 % (24-48) Monocytes (%) (Auto) 11 % (0-9) Eosinophils (%) (Auto) 1 % (0-3) Basophils (%) (Auto) 1 % (0-3) Neutrophils # (Auto) 4.3 x10^3/uL (1.8-7.7) Lymphocytes # (Auto) 2.9 x10^3/uL (1.0-4.8) Monocytes # (Auto) 0.9 x10^3/uL (0.0-1.1) Eosinophils # (Auto) 0.1 x10^3/uL (0.0-0.7) Basophils # (Auto) 0.1 x10^3/uL (0.0-0.2) Platelet Estimate Adequate (ADEQUATE) Large Platelets Few Hypochromasia Slight Anisocytosis Mod Prothrombin Time 19.5 SEC (11.7-14.0) Prothromb Time International Ratio 1.7 (0.8-1.1) Activated Partial Thromboplast Time 34 SEC (24-38) Sodium Level 131 mmol/L (136-145) Potassium Level 3.7 mmol/L (3.5-5.1) Chloride Level 96 mmol/L (98-107) Carbon Dioxide Level 26 mmol/L (21-32) Anion Gap 9 (6-14) Blood Urea Nitrogen 22 mg/dL (8-26) Creatinine 1.4 mg/dL (0.7-1.3) Estimated GFR (Cockcroft-Gault) 63.2 BUN/Creatinine Ratio 16 (6-20) Glucose Level 95 mg/dL (70-99) Lactic Acid Level 3.9 mmol/L (0.4-2.0) 2.8 mmol/L (0.4-2.0) 3.6 mmol/L (0.4-2.0) Calcium Level 9.2 mg/dL (8.5-10.1) Total Bilirubin 4.0 mg/dL (0.2-1.0) Aspartate Amino Transf (AST/SGOT) 159 U/L (15-37) Alanine Aminotransferase (ALT/SGPT) 117 U/L (16-63) Alkaline Phosphatase 259 U/L (46-116) Troponin I Quantitative 0.090 ng/mL (0.000-0.055) 0.392 ng/mL (0.000-0.055) MG-Kdl-J-Type Natriuretic Peptide 5363 pg/mL (0-124) Total Protein 8.4 g/dL (6.4-8.2) Albumin 3.6 g/dL (3.4-5.0) Albumin/Globulin Ratio 0.8 (1.0-1.7) Lipase 196 U/L (73-393) SARS-CoV-2 Antigen (Rapid) Negative (NEGATIVE) Test 02/22/20 04:15 02/22/20 09:10 02/22/20 21:10 02/23/20 05:00 White Blood Count 6.2 x10^3/uL (4.0-11.0) 5.9 x10^3/uL (4.0-11.0) Red Blood Count 4.18 x10^6/uL (4.30-5.70) 4.32 x10^6/uL (4.30-5.70) Hemoglobin 10.2 g/dL (13.0-17.5) 10.6 g/dL (13.0-17.5) Hematocrit 32.7 % (39.0-53.0) 33.5 % (39.0-53.0) Mean Corpuscular Volume 78 fL (79-100) 78 fL (79-100) Mean Corpuscular Hemoglobin 24 pg (25-35) 25 pg (25-35) Mean Corpuscular Hemoglobin Concent 31 g/dL (31-37) 32 g/dL (31-37) Red Cell Distribution Width 21.0 % (11.5-14.5) 20.5 % (11.5-14.5) Platelet Count 264 x10^3/uL (140-400) 234 x10^3/uL (140-400) Neutrophils (%) (Auto) 65 % (31-73) 67 % (31-73) Lymphocytes (%) (Auto) 22 % (24-48) 22 % (24-48) Monocytes (%) (Auto) 13 % (0-9) 9 % (0-9) Eosinophils (%) (Auto) 1 % (0-3) 1 % (0-3) Basophils (%) (Auto) 1 % (0-3) 1 % (0-3) Neutrophils # (Auto) 4.0 x10^3/uL (1.8-7.7) 3.9 x10^3/uL (1.8-7.7) Lymphocytes # (Auto) 1.3 x10^3/uL (1.0-4.8) 1.3 x10^3/uL (1.0-4.8) Monocytes # (Auto) 0.8 x10^3/uL (0.0-1.1) 0.6 x10^3/uL (0.0-1.1) Eosinophils # (Auto) 0.0 x10^3/uL (0.0-0.7) 0.0 x10^3/uL (0.0-0.7) Basophils # (Auto) 0.1 x10^3/uL (0.0-0.2) 0.0 x10^3/uL (0.0-0.2) Sodium Level 134 mmol/L (136-145) 136 mmol/L (136-145) Potassium Level 3.8 mmol/L (3.5-5.1) 3.4 mmol/L (3.5-5.1) Chloride Level 97 mmol/L (98-107) 100 mmol/L (98-107) Carbon Dioxide Level 29 mmol/L (21-32) 29 mmol/L (21-32) Anion Gap 8 (6-14) 7 (6-14) Blood Urea Nitrogen 26 mg/dL (8-26) 23 mg/dL (8-26) Creatinine 1.9 mg/dL (0.7-1.3) 1.9 mg/dL (0.7-1.3) Estimated GFR (Cockcroft-Gault) 44.4 44.4 Glucose Level 130 mg/dL (70-99) 91 mg/dL (70-99) Lactic Acid Level 2.3 mmol/L (0.4-2.0) 1.5 mmol/L (0.4-2.0) Calcium Level 9.1 mg/dL (8.5-10.1) 8.4 mg/dL (8.5-10.1) Iron Level 15 ug/dL (65-175) Total Iron Binding Capacity 362 ug/dL (250-450) Iron Saturation 4 % (15-34) Troponin I Quantitative 1.388 ng/mL (0.000-0.055) Urine Collection Type Unknown Urine Color Yellow Urine Clarity Clear Urine pH 5.0 (<5.0-8.0) Urine Specific [place] 1.010 (1.000-1.030) Urine Protein Negative mg/dL (NEG-TRACE) Urine Glucose (UA) Negative mg/dL (NEG) Urine Ketones (Stick) Negative mg/dL (NEG) Urine Blood Large (NEG) Urine Nitrite Negative (NEG) Urine Bilirubin Negative (NEG) Urine Urobilinogen Dipstick 1.0 mg/dL (0.2 mg/dL) Urine Leukocyte Esterase Negative (NEG) Urine RBC Tntc /HPF (0-2) Urine WBC 1-4 /HPF (0-4) Urine Squamous Epithelial Cells Few /LPF Urine Amorphous Sediment Present /HPF Urine Bacteria 0 /HPF (0-FEW) Urine Mucus Slight /LPF Urine Opiates Screen Pos (NEG) Urine Methadone Screen Neg (NEG) Urine Barbiturates Neg (NEG) Urine Phencyclidine Screen Neg (NEG) Urine Amphetamine/Methamphetamine Neg (NEG) Urine Benzodiazepines Screen Neg (NEG) Urine Cocaine Screen Neg (NEG) Urine Cannabinoids Screen Pos (NEG) Urine Ethyl Alcohol Neg (NEG) Laboratory Tests Test 02/22/20 09:10 02/22/20 21:10 02/23/20 05:00 Lactic Acid Level 1.5 mmol/L (0.4-2.0) Troponin I Quantitative 1.388 ng/mL (0.000-0.055) Urine Collection Type Unknown Urine Color Yellow Urine Clarity Clear Urine pH 5.0 (<5.0-8.0) Urine Specific [place] 1.010 (1.000-1.030) Urine Protein Negative mg/dL (NEG-TRACE) Urine Glucose (UA) Negative mg/dL (NEG) Urine Ketones (Stick) Negative mg/dL (NEG) Urine Blood Large (NEG) Urine Nitrite Negative (NEG) Urine Bilirubin Negative (NEG) Urine Urobilinogen Dipstick 1.0 mg/dL (0.2 mg/dL) Urine Leukocyte Esterase Negative (NEG) Urine RBC Tntc /HPF (0-2) Urine WBC 1-4 /HPF (0-4) Urine Squamous Epithelial Cells Few /LPF Urine Amorphous Sediment Present /HPF Urine Bacteria 0 /HPF (0-FEW) Urine Mucus Slight /LPF Urine Opiates Screen Pos (NEG) Urine Methadone Screen Neg (NEG) Urine Barbiturates Neg (NEG) Urine Phencyclidine Screen Neg (NEG) Urine Amphetamine/Methamphetamine Neg (NEG) Urine Benzodiazepines Screen Neg (NEG) Urine Cocaine Screen Neg (NEG) Urine Cannabinoids Screen Pos (NEG) Urine Ethyl Alcohol Neg (NEG) White Blood Count 5.9 x10^3/uL (4.0-11.0) Red Blood Count 4.32 x10^6/uL (4.30-5.70) Hemoglobin 10.6 g/dL (13.0-17.5) Hematocrit 33.5 % (39.0-53.0) Mean Corpuscular Volume 78 fL (79-100) Mean Corpuscular Hemoglobin 25 pg (25-35) Mean Corpuscular Hemoglobin Concent 32 g/dL (31-37) Red Cell Distribution Width 20.5 % (11.5-14.5) Platelet Count 234 x10^3/uL (140-400) Neutrophils (%) (Auto) 67 % (31-73) Lymphocytes (%) (Auto) 22 % (24-48) Monocytes (%) (Auto) 9 % (0-9) Eosinophils (%) (Auto) 1 % (0-3) Basophils (%) (Auto) 1 % (0-3) Neutrophils # (Auto) 3.9 x10^3/uL (1.8-7.7) Lymphocytes # (Auto) 1.3 x10^3/uL (1.0-4.8) Monocytes # (Auto) 0.6 x10^3/uL (0.0-1.1) Eosinophils # (Auto) 0.0 x10^3/uL (0.0-0.7) Basophils # (Auto) 0.0 x10^3/uL (0.0-0.2) Sodium Level 136 mmol/L (136-145) Potassium Level 3.4 mmol/L (3.5-5.1) Chloride Level 100 mmol/L (98-107) Carbon Dioxide Level 29 mmol/L (21-32) Anion Gap 7 (6-14) Blood Urea Nitrogen 23 mg/dL (8-26) Creatinine 1.9 mg/dL (0.7-1.3) Estimated GFR (Cockcroft-Gault) 44.4 Glucose Level 91 mg/dL (70-99) Calcium Level 8.4 mg/dL (8.5-10.1) Problem List Problems Medical Problems: (1) Abdominal pain Status: Acute (2) Hepatitis Status: Acute Assessment/Plan cardiac eval in progress HIDA also pending no surgical plans Justicifation of Admission Dx: Justifications for Admission: Justification of Admission Dx: Yes KATHLEEN DANG APRN Feb 23, 2020 09:03
[2020-02-23] MEDS: PANTOPRAZOLE 40 MG TABLET.DR. PO SCH (09:04)
[2020-02-23] MEDS: POTASSIUM CHLORIDE 20 MEQ TABLET.ER. PO SCH (09:07)
[2020-02-23] MEDS: FUROSEMIDE 40 MG TABLET. PO SCH (09:11)
--- NOTE | 2020-02-23 10:25 | PDOC ---
Objective: Objective: D/w nurse - "stomach pain" - plans for cardiac cath today and HIDA tomorrow. Rapid COVID negative, awaiting confirmation - remains in isolation. On PO PPI. D/w Dr. Bhakta/med students. Vital Signs: Vital Signs Date Time Temp Pulse Resp B/P (MAP) Pulse Ox O2 Delivery O2 Flow Rate FiO2 02/23/20 09:00 73 121/82 02/23/20 07:00 98.2 17 100 Room Air 98.2 Labs: Laboratory Tests Test 02/22/20 21:10 02/23/20 05:00 Urine Collection Type Unknown Urine Color Yellow Urine Clarity Clear Urine pH 5.0 Urine Specific [place] 1.010 Urine Protein Negative mg/dL Urine Glucose (UA) Negative mg/dL Urine Ketones (Stick) Negative mg/dL Urine Blood Large Urine Nitrite Negative Urine Bilirubin Negative Urine Urobilinogen Dipstick 1.0 mg/dL Urine Leukocyte Esterase Negative Urine RBC Tntc /HPF Urine WBC 1-4 /HPF Urine Squamous Epithelial Cells Few /LPF Urine Amorphous Sediment Present /HPF Urine Bacteria 0 /HPF Urine Mucus Slight /LPF Urine Opiates Screen Pos Urine Methadone Screen Neg Urine Barbiturates Neg Urine Phencyclidine Screen Neg Urine Amphetamine/Methamphetamine Neg Urine Benzodiazepines Screen Neg Urine Cocaine Screen Neg Urine Cannabinoids Screen Pos Urine Ethyl Alcohol Neg White Blood Count 5.9 x10^3/uL Red Blood Count 4.32 x10^6/uL Hemoglobin 10.6 g/dL Hematocrit 33.5 % Mean Corpuscular Volume 78 fL Mean Corpuscular Hemoglobin 25 pg Mean Corpuscular Hemoglobin Concent 32 g/dL Red Cell Distribution Width 20.5 % Platelet Count 234 x10^3/uL Neutrophils (%) (Auto) 67 % Lymphocytes (%) (Auto) 22 % Monocytes (%) (Auto) 9 % Eosinophils (%) (Auto) 1 % Basophils (%) (Auto) 1 % Neutrophils # (Auto) 3.9 x10^3/uL Lymphocytes # (Auto) 1.3 x10^3/uL Monocytes # (Auto) 0.6 x10^3/uL Eosinophils # (Auto) 0.0 x10^3/uL Basophils # (Auto) 0.0 x10^3/uL Sodium Level 136 mmol/L Potassium Level 3.4 mmol/L Chloride Level 100 mmol/L Carbon Dioxide Level 29 mmol/L Anion Gap 7 Blood Urea Nitrogen 23 mg/dL Creatinine 1.9 mg/dL Estimated GFR (Cockcroft-Gault) 44.4 Glucose Level 91 mg/dL Calcium Level 8.4 mg/dL Imaging: US 02/20 IMPRESSION: 1. Hepatomegaly. 2. Borderline gallbladder wall thickening. 3. Trace abdominal ascites. Normal CBD (3mm). PE: GEN: NAD - in COVID isolation LUNGS: clear, room air HEART: RRR ABD: non-distended NEURO/PSYCH: A & O 3 A/P: Elevated LFTs - ?related to cardiac issues N/v (better?), mid abd pain CHF/ICM, CAD RENAN H/o heartburn CRC screen - none +cannabinoids, h/o cocaine -- Plans as above, will follow. Justicifation of Admission Dx: Justifications for Admission: Justification of Admission Dx: Yes HAZEL HORNE Feb 23, 2020 10:25
--- NOTE | 2020-02-23 10:28 | PDOC ---
[facility] PROGRESS NOTE Chief Complaint Chief Complaint Acute right upper quadrant abdominal pain SOA CHF with reduced EF BLE edema Ascites Hepatomegaly HTN CAD s/p CABG History of Present Illness History of Present Illness 02/23/2020 Patient seen and examined Laying down in bed, NAD RUQ pain improved Discussed with RN Chart reviewed 02/22/2020 Patient seen and examined Laying down in bed, NAD RUQ pain improved since admit Discussed with RN Vitals/I&O Vitals/I&O: Vital Signs Date Time Temp Pulse Resp B/P (MAP) Pulse Ox O2 Delivery O2 Flow Rate FiO2 02/23/20 09:00 73 121/82 02/23/20 07:00 98.2 17 100 Room Air 98.2 I & O 02/22/20 02/22/20 02/23/20 15:00 23:00 07:00 Intake Total 50 ml 50 ml 200 ml Output Total 350 ml 750 ml 1000 ml Balance -300 ml -700 ml -800 ml Physical Exam Physical Exam: General: Alert, Oriented X3, Cooperative, no acute distress HEENT: Atraumatic, PERRLA Lungs: Clear to auscultation Heart: RRR, no thrills, irregularly irregular Abdomen: Normal bowel sounds, soft, fullness, tender RUQ. Extremities: Other (2+ BLE edema) Skin: No rashes Neuro: Normal speech, Normal tone, Sensation intact Psych/Mental Status: Mood NL General: Alert, Oriented X3, Cooperative Heart: Regular rate, Normal S1, Normal S2 Lungs: Clear Abdomen: Soft, No tenderness Extremities: No tenderness/swelling, Other (2+ BLE edema) Skin: No rashes, No breakdown Labs Labs: Laboratory Tests Test 02/22/20 21:10 02/23/20 05:00 Urine Collection Type Unknown Urine Color Yellow Urine Clarity Clear Urine pH 5.0 (<5.0-8.0) Urine Specific [place] 1.010 (1.000-1.030) Urine Protein Negative mg/dL (NEG-TRACE) Urine Glucose (UA) Negative mg/dL (NEG) Urine Ketones (Stick) Negative mg/dL (NEG) Urine Blood Large (NEG) Urine Nitrite Negative (NEG) Urine Bilirubin Negative (NEG) Urine Urobilinogen Dipstick 1.0 mg/dL (0.2 mg/dL) Urine Leukocyte Esterase Negative (NEG) Urine RBC Tntc /HPF (0-2) Urine WBC 1-4 /HPF (0-4) Urine Squamous Epithelial Cells Few /LPF Urine Amorphous Sediment Present /HPF Urine Bacteria 0 /HPF (0-FEW) Urine Mucus Slight /LPF Urine Opiates Screen Pos (NEG) Urine Methadone Screen Neg (NEG) Urine Barbiturates Neg (NEG) Urine Phencyclidine Screen Neg (NEG) Urine Amphetamine/Methamphetamine Neg (NEG) Urine Benzodiazepines Screen Neg (NEG) Urine Cocaine Screen Neg (NEG) Urine Cannabinoids Screen Pos (NEG) Urine Ethyl Alcohol Neg (NEG) White Blood Count 5.9 x10^3/uL (4.0-11.0) Red Blood Count 4.32 x10^6/uL (4.30-5.70) Hemoglobin 10.6 g/dL (13.0-17.5) Hematocrit 33.5 % (39.0-53.0) Mean Corpuscular Volume 78 fL (79-100) Mean Corpuscular Hemoglobin 25 pg (25-35) Mean Corpuscular Hemoglobin Concent 32 g/dL (31-37) Red Cell Distribution Width 20.5 % (11.5-14.5) Platelet Count 234 x10^3/uL (140-400) Neutrophils (%) (Auto) 67 % (31-73) Lymphocytes (%) (Auto) 22 % (24-48) Monocytes (%) (Auto) 9 % (0-9) Eosinophils (%) (Auto) 1 % (0-3) Basophils (%) (Auto) 1 % (0-3) Neutrophils # (Auto) 3.9 x10^3/uL (1.8-7.7) Lymphocytes # (Auto) 1.3 x10^3/uL (1.0-4.8) Monocytes # (Auto) 0.6 x10^3/uL (0.0-1.1) Eosinophils # (Auto) 0.0 x10^3/uL (0.0-0.7) Basophils # (Auto) 0.0 x10^3/uL (0.0-0.2) Sodium Level 136 mmol/L (136-145) Potassium Level 3.4 mmol/L (3.5-5.1) Chloride Level 100 mmol/L (98-107) Carbon Dioxide Level 29 mmol/L (21-32) Anion Gap 7 (6-14) Blood Urea Nitrogen 23 mg/dL (8-26) Creatinine 1.9 mg/dL (0.7-1.3) Estimated GFR (Cockcroft-Gault) 44.4 Glucose Level 91 mg/dL (70-99) Calcium Level 8.4 mg/dL (8.5-10.1) Review of Systems Review of Systems: Pertinent as per HPI, otherwise 10 point review of systems is negative. Assessment and Plan Assessmemt and Plan Problems Medical Problems: (1) Abdominal pain Status: Acute (2) Hepatitis Status: Acute ASSESSMENT Acute right upper quadrant abdominal pain SOA CHF with reduced EF BLE edema Ascites Hepatomegaly HTN CAD s/p CABG PLAN Continue current care Appreciate subspecialist input RHC and HIDA scan once repeat COVID-19 results are available Home meds Cardiac monitoring Trend labs DVT prophylaxis Full code Comment Review of Relevant I have reviewed the following items rob (where applicable) has been applied. Medications: Current Medications Medications (Trade) Dose Ordered Sig/Amado Route PRN Reason Start Time Stop Time Status Last Admin Dose Admin Pantoprazole Sodium (Protonix) 40 mg DAILYAC PO 02/22/20 15:00 02/23/20 09:04 Justicifation of Admission Dx: Justifications for Admission: Justification of Admission Dx: Yes ELIJAH PEÑALOZA III DO Feb 23, 2020 10:28
--- NOTE | 2020-02-23 15:15 | EKG ---
[facility] [address] [place] [address] Test Date: 2020-02-21 Test Time: 12:31:23 Pat Name: DOREEN TAYLOR Department: Room: Gender: M Patient Access Coordinator: : 1960 Requested By: SVEN MONDRAGON Order Number: [id number] Reading MD: Measurements Intervals [place] Rate: 99 P: 90 MS: 148 QRS: -34 QRSD: 102 T: 76 QT: 380 QTc: 494 Interpretive Statements SINUS RHYTHM LEFT ATRIAL ABNORMALITY ABNORMAL LEFT AXIS DEVIATION QRS(T) CONTOUR ABNORMALITY CONSIDER INFERIOR INFARCT T ABNORMALITY IN HIGH LATERAL LEADS ABNORMAL ECG RI6.01 No previous ECG available for comparison
--- NOTE | 2020-02-23 16:33 | NUR ---
SW following. Spoke with RN and reviewed chart. Spoke with pt who stated he lives alone. Pt stated no concerns about returning home at discharge. Pt is retired and operated heavy machinery for a living. Pt on IV Zosyn and room air. SW to follow as needed.
[2020-02-23] MEDS: fentaNYL PF VIAL 100 MCG/2 ML VIAL IVP PRN ×2 (16:52→21:22)
[2020-02-23] MEDS: LACTOBACILLUS RHAMNOSUS GG 1 CAPSULE. PO SCH (21:18)
[2020-02-23] MEDS: oxyCODONE IR 5 MG TABLET PO PRN (21:21)
[2020-02-24] VITALS (10 sets, daily range): BP systolic 91–130; BP diastolic 62–96
[2020-02-24 05:22] LABS: BASO % 0 % (0-3); EOS % 1 % (0-3); HEMATOCRIT 32.7 % (39.0-53.0); HEMOGLOBIN 10.5 g/dL (13.0-17.5); LYMPH # 1.5 x10^3/uL (1.0-4.8); LYMPH % 24 % (24-48); MEAN CORPUSCULAR HEMOGLOBIN 25 pg (25-35); MEAN CORPUSCULAR HGB CONC 32 g/dL (31-37); MEAN CORPUSCULAR VOLUME 78 fL (79-100); MONO # 0.7 x10^3/uL (0.0-1.1); MONO % 11 % (0-9); NEUT # 4.2 x10^3/uL (1.8-7.7); NEUT % 64 % (31-73); PLATELET COUNT 242 x10^3/uL (140-400); RED BLOOD COUNT 4.22 x10^6/uL (4.30-5.70); RED CELL DISTRIBUTION WIDTH 20.1 % (11.5-14.5); WHITE BLOOD COUNT 6.5 x10^3/uL (4.0-11.0)
[2020-02-24 05:40] LABS: ALBUMIN 2.6 g/dL (3.4-5.0); CALCIUM 8.5 mg/dL (8.5-10.1); CREATININE 1.7 mg/dL (0.7-1.3); DIRECT BILIRUBIN 1.1 mg/dL (0.0-0.2); GFR 50.5; POTASSIUM 3.2 mmol/L (3.5-5.1); TOTAL BILIRUBIN 1.5 mg/dL (0.2-1.0); TOTAL PROTEIN 6.6 g/dL (6.4-8.2)
[2020-02-24] MEDS: PIPERACILLIN/TAZOBACTAM 3.375 GM in IV NORMAL SALINE 50ML 50 ML IV SCH ×2 (06:05→11:46)
[2020-02-24] MEDS ORDERED: POTASSIUM CHLORIDE 20 MEQ TABLET.ER. PO ONE (07:30)
[2020-02-24] MEDS: oxyCODONE IR 5 MG TABLET PO PRN ×2 (07:34→15:18)
--- NOTE | 2020-02-24 07:37 | PDOC ---
[employer] PROGRESS NOTE Date of Service DOS: DATE: 02/24/20 TIME: 07:37 Chief Complaint Chief Complaint Acute right upper quadrant abdominal pain SOA CHF with reduced EF BLE edema Ascites Hepatomegaly HTN CAD s/p CABG History of Present Illness History of Present Illness 02/21: RUQ pain improved since admit 02/22: Patient seen and examinedk Laying down in bed, NAD, RUQ pain improved Afebrile some midepigastric pain today. Potassium 3.2 magnesium 1.3 creatinine 1.7 down from 1.9 on admission albumin 2.6 bilirubin 1.5. Going to HIDA scan and cardiac catheterization today Vitals/I&O Vitals/I&O: Vital Signs Date Time Temp Pulse Resp B/P (MAP) Pulse Ox O2 Delivery O2 Flow Rate FiO2 02/24/20 07:34 18 Room Air 02/24/20 03:15 97.9 68 106/70 (82) 98 97.9 I & O 02/23/20 02/23/20 02/24/20 15:00 23:00 07:00 Intake Total 100 ml Output Total 2250 ml 1500 ml 200 ml Balance -2250 ml -1500 ml -100 ml Physical Exam Physical Exam: General: Alert, Oriented X3, Cooperative, no acute distress HEENT: Atraumatic, PERRLA Lungs: Clear to auscultation Heart: RRR, no thrills, irregularly irregular Abdomen: Normal bowel sounds, soft, fullness, tender RUQ. Extremities: Other (2+ BLE edema) Skin: No rashes Neuro: Normal speech, Normal tone, Sensation intact Psych/Mental Status: Mood NL General: Alert, Oriented X3, Cooperative Heart: Regular rate, Normal S1, Normal S2 Lungs: Clear Abdomen: Soft, No tenderness Extremities: No tenderness/swelling, Other (2+ BLE edema) Skin: No rashes, No breakdown Labs Labs: Laboratory Tests Test 02/24/20 04:10 White Blood Count 6.5 x10^3/uL (4.0-11.0) Red Blood Count 4.22 x10^6/uL (4.30-5.70) Hemoglobin 10.5 g/dL (13.0-17.5) Hematocrit 32.7 % (39.0-53.0) Mean Corpuscular Volume 78 fL (79-100) Mean Corpuscular Hemoglobin 25 pg (25-35) Mean Corpuscular Hemoglobin Concent 32 g/dL (31-37) Red Cell Distribution Width 20.1 % (11.5-14.5) Platelet Count 242 x10^3/uL (140-400) Neutrophils (%) (Auto) 64 % (31-73) Lymphocytes (%) (Auto) 24 % (24-48) Monocytes (%) (Auto) 11 % (0-9) Eosinophils (%) (Auto) 1 % (0-3) Basophils (%) (Auto) 0 % (0-3) Neutrophils # (Auto) 4.2 x10^3/uL (1.8-7.7) Lymphocytes # (Auto) 1.5 x10^3/uL (1.0-4.8) Monocytes # (Auto) 0.7 x10^3/uL (0.0-1.1) Eosinophils # (Auto) 0.0 x10^3/uL (0.0-0.7) Basophils # (Auto) 0.0 x10^3/uL (0.0-0.2) Sodium Level 137 mmol/L (136-145) Potassium Level 3.2 mmol/L (3.5-5.1) Chloride Level 99 mmol/L (98-107) Carbon Dioxide Level 33 mmol/L (21-32) Anion Gap 5 (6-14) Blood Urea Nitrogen 16 mg/dL (8-26) Creatinine 1.7 mg/dL (0.7-1.3) Estimated GFR (Cockcroft-Gault) 50.5 Glucose Level 78 mg/dL (70-99) Calcium Level 8.5 mg/dL (8.5-10.1) Total Bilirubin 1.5 mg/dL (0.2-1.0) Direct Bilirubin 1.1 mg/dL (0.0-0.2) Aspartate Amino Transf (AST/SGOT) 64 U/L (15-37) Alanine Aminotransferase (ALT/SGPT) 62 U/L (16-63) Alkaline Phosphatase 177 U/L (46-116) Total Protein 6.6 g/dL (6.4-8.2) Albumin 2.6 g/dL (3.4-5.0) Assessment and Plan Assessmemt and Plan Problems Medical Problems: (1) Abdominal pain Status: Acute (2) Hepatitis Status: Acute Comment Review of Relevant I have reviewed the following items rob (where applicable) has been applied. Medications: Current Medications Medications (Trade) Dose Ordered Sig/Amado Route PRN Reason Start Time Stop Time Status Last Admin Dose Admin Lactobacillus Rhamnosus (Culturelle) 1 cap BID PO 02/23/20 21:00 02/23/20 21:18 Potassium Chloride (Klor-Con) 40 meq 1X ONCE PO 02/24/20 07:30 02/24/20 07:31 DC 02/24/20 07:32 Justicifation of Admission Dx: Justifications for Admission: Justification of Admission Dx: Yes TESSIE BARRETO MD Feb 24, 2020 07:37
[2020-02-24] MEDS ORDERED: SINCALIDE 1.53 MCG in IV NORMAL SALINE 50ML 30 ML IV ONE (08:30)
--- NOTE | 2020-02-24 09:01 | NUR ---
SS following for discharge planning. SS reviewed pt chart and discussed with pt RN. Pt is from home and is currently on room air. COVID19 negative. Pt on IV Zosyn. Scheduled for heart cath today. Discharge plan is to home when medically ready. SS will continue to follow for discharge planning.
--- NOTE | 2020-02-24 09:34 | PDOC ---
Date of Service: DATE: 02/24/20 TIME: 09:32 Objective: Objective: D/w nurse - out for HIDA and then heart cath. C/o mid abd pain. Vital Signs: Vital Signs Date Time Temp Pulse Resp B/P (MAP) Pulse Ox O2 Delivery O2 Flow Rate FiO2 02/24/20 08:20 Room Air 02/24/20 07:34 18 02/24/20 03:15 97.9 68 106/70 (82) 98 97.9 Labs: Laboratory Tests Test 02/24/20 04:10 White Blood Count 6.5 x10^3/uL Red Blood Count 4.22 x10^6/uL Hemoglobin 10.5 g/dL Hematocrit 32.7 % Mean Corpuscular Volume 78 fL Mean Corpuscular Hemoglobin 25 pg Mean Corpuscular Hemoglobin Concent 32 g/dL Red Cell Distribution Width 20.1 % Platelet Count 242 x10^3/uL Neutrophils (%) (Auto) 64 % Lymphocytes (%) (Auto) 24 % Monocytes (%) (Auto) 11 % Eosinophils (%) (Auto) 1 % Basophils (%) (Auto) 0 % Neutrophils # (Auto) 4.2 x10^3/uL Lymphocytes # (Auto) 1.5 x10^3/uL Monocytes # (Auto) 0.7 x10^3/uL Eosinophils # (Auto) 0.0 x10^3/uL Basophils # (Auto) 0.0 x10^3/uL Sodium Level 137 mmol/L Potassium Level 3.2 mmol/L Chloride Level 99 mmol/L Carbon Dioxide Level 33 mmol/L Anion Gap 5 Blood Urea Nitrogen 16 mg/dL Creatinine 1.7 mg/dL Estimated GFR (Cockcroft-Gault) 50.5 Glucose Level 78 mg/dL Calcium Level 8.5 mg/dL Magnesium Level 1.3 mg/dL Total Bilirubin 1.5 mg/dL Direct Bilirubin 1.1 mg/dL Aspartate Amino Transf (AST/SGOT) 64 U/L Alanine Aminotransferase (ALT/SGPT) 62 U/L Alkaline Phosphatase 177 U/L Total Protein 6.6 g/dL Albumin 2.6 g/dL PE: out of room A/P: Elevated LFTs - improved Mid abd pain RENAN - h/o heartburn, no previous endoscopy CHF/ICM, CAD, +cannabinoids, h/o cocaine COVID negative -- Await pending tests. Justicifation of Admission Dx: Justifications for Admission: Justification of Admission Dx: Yes HAZEL HORNE Feb 24, 2020 09:34
[2020-02-24] MEDS: SACUBITRIL/VALSARTAN 24/26MG TABLET. PO SCH (09:45)
[2020-02-24] MEDS: CARVEDILOL 12.5 MG TABLET. PO SCH (09:45)
[2020-02-24] MEDS ORDERED: HEPARIN for ARTERIAL LINE 0 ML ONE (09:45)
[2020-02-24] MEDS ORDERED: LIDOCAINE 1% Multi-Dose 20 ML VIAL. ONE (09:46)
[2020-02-24] MEDS ORDERED: MAGNESIUM SULFATE 2GM 50 ML IV ONE (10:00)
[2020-02-24] MEDS ORDERED: fentaNYL PF VIAL 100 MCG/2 ML VIAL ONE (10:09)
[2020-02-24] MEDS ORDERED: MIDAZOLAM HCL/PF 2 MG/2 ML VIAL. ONE (10:10)
[2020-02-24] MEDS ORDERED: LIDOCAINE 1% Multi-Dose 20 ML VIAL. INJ ONE (10:15)
[2020-02-24] MEDS ORDERED: fentaNYL PF VIAL 100 MCG/2 ML VIAL IV ONE (10:30)
[2020-02-24] MEDS ORDERED: MIDAZOLAM HCL/PF 2 MG/2 ML VIAL. IV ONE (10:30)
[2020-02-24] MEDS: LACTOBACILLUS RHAMNOSUS GG 1 CAPSULE. PO SCH (11:15)
[2020-02-24] MEDS: FUROSEMIDE 40 MG TABLET. PO SCH (11:15)
[2020-02-24] MEDS: PANTOPRAZOLE 40 MG TABLET.DR. PO SCH (11:15)
[2020-02-24] MEDS: POTASSIUM CHLORIDE 20 MEQ TABLET.ER. PO SCH (11:15)
--- NOTE | 2020-02-24 11:36 | CARD ---
MR#: [id number] Date of Study: 02/24/2020 Ordering Physician: KASSIDY EPPERSON, Referring Physician: KASSIDY EPPERSON, Tech: Tracey Patel APPROVED REPORT Technologist: Tracey Patel Nurse: Kimmy Angeles R.N. Procedure(s) performed: fl time: 1.3 mins dose: 1.7 gycm2 moderate sedation: 36 MINS RHC HISTORY The patient is a 59 year-old male with a history of : NICM presented with severe heart failure. He pr esents to the manager cath lab for delineation of filling pressures. . INDICATION The indication(s) include : dyspnea. Heart Failure Heart Failure: Yes PROCEDURE NARRATIVE Clinical information 59-year-old male with severe nonischemic cardiomyopathy presents to the Safety Belt Installer for delineation of h emodynamics Procedure details: The right neck was prepped and draped in usual sterile fashion. Under 2% lidocaine local anesthesia and ultrasound guidance a 18-gauge needle was used to engage the right internal jugular vein and a J- tip guidewire was advanced without difficulty and a 5 Green[place]ic sheath was placed. A ultrasound image w as saved for documentation purposes. Next, a 5 Greenlandic PA catheter was advanced to the right heart chambers and pressures and saturations w ere obtained. Findings: Pulmonary capillary wedge sat: 99.2% PA sat 50.2% Raoul cardiac output 3.1 L/min Raoul cardiac index 1.6 RA //19 RV 69/28/35 PA 64/38/43 Wedge 28/20 9/25 mmHg At case completion the catheter and sheath were removed and hemostasis was achieved with manual compr ession. There were no acute complications. Conclusion 1. Severe biventricular pressure overload. 2. Secondary pulmonary hypertension, mean PA 43 3. Low cardiac output Recommendations Case was discussed with [facility] heart failure transplant team. We will transfer for VAD/tr ansplant evaluation. Signed by : Kassidy Epperson, Electronically Approved : 02/24/2020 11:35:49
--- NOTE | 2020-02-24 11:55 | NUR ---
SS following up with discharge planning. SS notified that pt needs to transfer to . SS contacted transfer team and spoke with [facility], ; fax [phone]. Request for transfer made. Cardiology and Radiology clouded images and reports to . Requested clinical phoned and faxed to . SS currently awaiting acceptance decision and will proceed accordingly.
--- NOTE | 2020-02-24 12:45 | PDOC ---
KATHLEEN DANG MACHINE WIPER 02/24/20 1245: SURGICAL PROGRESS NOTE DATE: 02/24/20 TIME: 12:43 Subjective still with pain, d/w nurse --plans for [facility] tx--needs eval for cardiac transplant Vital Signs Vital Signs Date Time Temp Pulse Resp B/P (MAP) Pulse Ox O2 Delivery O2 Flow Rate FiO2 02/24/20 11:22 18 Room Air 02/24/20 11:00 97.3 67 101/80 (87) 98 97.3 02/24/20 10:52 2.0 I&O Intake and Output 02/24/20 07:00 Intake Total 100 ml Output Total 3950 ml Balance -3850 ml Intake Oral 100 ml Output Urine Total 3950 ml # Voids 1 General: Alert, Oriented X3, Cooperative Abdomen: Soft Labs Laboratory Tests Test 02/22/20 21:10 02/23/20 05:00 02/24/20 04:10 Urine Collection Type Unknown Urine Color Yellow Urine Clarity Clear Urine pH 5.0 (<5.0-8.0) Urine Specific Opp 1.010 (1.000-1.030) Urine Protein Negative mg/dL (NEG-TRACE) Urine Glucose (UA) Negative mg/dL (NEG) Urine Ketones (Stick) Negative mg/dL (NEG) Urine Blood Large (NEG) Urine Nitrite Negative (NEG) Urine Bilirubin Negative (NEG) Urine Urobilinogen Dipstick 1.0 mg/dL (0.2 mg/dL) Urine Leukocyte Esterase Negative (NEG) Urine RBC Tntc /HPF (0-2) Urine WBC 1-4 /HPF (0-4) Urine Squamous Epithelial Cells Few /LPF Urine Amorphous Sediment Present /HPF Urine Bacteria 0 /HPF (0-FEW) Urine Mucus Slight /LPF Urine Opiates Screen Pos (NEG) Urine Methadone Screen Neg (NEG) Urine Barbiturates Neg (NEG) Urine Phencyclidine Screen Neg (NEG) Urine Amphetamine/Methamphetamine Neg (NEG) Urine Benzodiazepines Screen Neg (NEG) Urine Cocaine Screen Neg (NEG) Urine Cannabinoids Screen Pos (NEG) Urine Ethyl Alcohol Neg (NEG) White Blood Count 5.9 x10^3/uL (4.0-11.0) 6.5 x10^3/uL (4.0-11.0) Red Blood Count 4.32 x10^6/uL (4.30-5.70) 4.22 x10^6/uL (4.30-5.70) Hemoglobin 10.6 g/dL (13.0-17.5) 10.5 g/dL (13.0-17.5) Hematocrit 33.5 % (39.0-53.0) 32.7 % (39.0-53.0) Mean Corpuscular Volume 78 fL (79-100) 78 fL (79-100) Mean Corpuscular Hemoglobin 25 pg (25-35) 25 pg (25-35) Mean Corpuscular Hemoglobin Concent 32 g/dL (31-37) 32 g/dL (31-37) Red Cell Distribution Width 20.5 % (11.5-14.5) 20.1 % (11.5-14.5) Platelet Count 234 x10^3/uL (140-400) 242 x10^3/uL (140-400) Neutrophils (%) (Auto) 67 % (31-73) 64 % (31-73) Lymphocytes (%) (Auto) 22 % (24-48) 24 % (24-48) Monocytes (%) (Auto) 9 % (0-9) 11 % (0-9) Eosinophils (%) (Auto) 1 % (0-3) 1 % (0-3) Basophils (%) (Auto) 1 % (0-3) 0 % (0-3) Neutrophils # (Auto) 3.9 x10^3/uL (1.8-7.7) 4.2 x10^3/uL (1.8-7.7) Lymphocytes # (Auto) 1.3 x10^3/uL (1.0-4.8) 1.5 x10^3/uL (1.0-4.8) Monocytes # (Auto) 0.6 x10^3/uL (0.0-1.1) 0.7 x10^3/uL (0.0-1.1) Eosinophils # (Auto) 0.0 x10^3/uL (0.0-0.7) 0.0 x10^3/uL (0.0-0.7) Basophils # (Auto) 0.0 x10^3/uL (0.0-0.2) 0.0 x10^3/uL (0.0-0.2) Sodium Level 136 mmol/L (136-145) 137 mmol/L (136-145) Potassium Level 3.4 mmol/L (3.5-5.1) 3.2 mmol/L (3.5-5.1) Chloride Level 100 mmol/L (98-107) 99 mmol/L (98-107) Carbon Dioxide Level 29 mmol/L (21-32) 33 mmol/L (21-32) Anion Gap 7 (6-14) 5 (6-14) Blood Urea Nitrogen 23 mg/dL (8-26) 16 mg/dL (8-26) Creatinine 1.9 mg/dL (0.7-1.3) 1.7 mg/dL (0.7-1.3) Estimated GFR (Cockcroft-Gault) 44.4 50.5 Glucose Level 91 mg/dL (70-99) 78 mg/dL (70-99) Calcium Level 8.4 mg/dL (8.5-10.1) 8.5 mg/dL (8.5-10.1) Magnesium Level 1.3 mg/dL (1.8-2.4) Total Bilirubin 1.5 mg/dL (0.2-1.0) Direct Bilirubin 1.1 mg/dL (0.0-0.2) Aspartate Amino Transf (AST/SGOT) 64 U/L (15-37) Alanine Aminotransferase (ALT/SGPT) 62 U/L (16-63) Alkaline Phosphatase 177 U/L (46-116) Total Protein 6.6 g/dL (6.4-8.2) Albumin 2.6 g/dL (3.4-5.0) Laboratory Tests Test 02/24/20 04:10 White Blood Count 6.5 x10^3/uL (4.0-11.0) Red Blood Count 4.22 x10^6/uL (4.30-5.70) Hemoglobin 10.5 g/dL (13.0-17.5) Hematocrit 32.7 % (39.0-53.0) Mean Corpuscular Volume 78 fL (79-100) Mean Corpuscular Hemoglobin 25 pg (25-35) Mean Corpuscular Hemoglobin Concent 32 g/dL (31-37) Red Cell Distribution Width 20.1 % (11.5-14.5) Platelet Count 242 x10^3/uL (140-400) Neutrophils (%) (Auto) 64 % (31-73) Lymphocytes (%) (Auto) 24 % (24-48) Monocytes (%) (Auto) 11 % (0-9) Eosinophils (%) (Auto) 1 % (0-3) Basophils (%) (Auto) 0 % (0-3) Neutrophils # (Auto) 4.2 x10^3/uL (1.8-7.7) Lymphocytes # (Auto) 1.5 x10^3/uL (1.0-4.8) Monocytes # (Auto) 0.7 x10^3/uL (0.0-1.1) Eosinophils # (Auto) 0.0 x10^3/uL (0.0-0.7) Basophils # (Auto) 0.0 x10^3/uL (0.0-0.2) Sodium Level 137 mmol/L (136-145) Potassium Level 3.2 mmol/L (3.5-5.1) Chloride Level 99 mmol/L (98-107) Carbon Dioxide Level 33 mmol/L (21-32) Anion Gap 5 (6-14) Blood Urea Nitrogen 16 mg/dL (8-26) Creatinine 1.7 mg/dL (0.7-1.3) Estimated GFR (Cockcroft-Gault) 50.5 Glucose Level 78 mg/dL (70-99) Calcium Level 8.5 mg/dL (8.5-10.1) Magnesium Level 1.3 mg/dL (1.8-2.4) Total Bilirubin 1.5 mg/dL (0.2-1.0) Direct Bilirubin 1.1 mg/dL (0.0-0.2) Aspartate Amino Transf (AST/SGOT) 64 U/L (15-37) Alanine Aminotransferase (ALT/SGPT) 62 U/L (16-63) Alkaline Phosphatase 177 U/L (46-116) Total Protein 6.6 g/dL (6.4-8.2) Albumin 2.6 g/dL (3.4-5.0) Problem List Problems Medical Problems: (1) Abdominal pain Status: Acute (2) Hepatitis Status: Acute Assessment/Plan recs noted will sign off, please call with questions Justicifation of Admission Dx: Justifications for Admission: Justification of Admission Dx: Yes JT RENEE MD 02/24/20 1428: SURGICAL PROGRESS NOTE Assessment/Plan Agree with above KATHLEEN DANG APRN Feb 24, 2020 12:45 JT RENEE MD Feb 24, 2020 14:28
[2020-02-24] MEDS ORDERED: OXYC5TAB4 PO (13:33)
[2020-02-24] MEDS ORDERED: LACT1CAP19 PO (13:33)
[2020-02-24] MEDS ORDERED: PANT40TA77 PO (13:33)
[2020-02-24] MEDS ORDERED: PIPE3.377 IV (13:33)
--- NOTE | 2020-02-24 13:35 | SNU/HH DC ---
DISCHARGE ORDERS DISCHARGE INFORMATION: DISCHARGE DATE: Feb 24, 2020 FINAL DIAGNOSIS Problems Medical Problems: (1) Abdominal pain Status: Acute (2) Hepatitis Status: Acute CONDITION ON DISCHARGE: Stable CODE STATUS: Code Status: Full POST DISCHARGE ORDERS: ACTIVITY ORDERS: No restrictions, Activity as tolerated WEIGHT BEARING STATUS: No restrictions, As tolerated DIET AFTER DISCHARGE: Cardiac CHECKS AFTER DISCHARGE: CHECKS AFTER DISCHARGE: Check blood press - daily, Weigh Yourself Daily FOLLOW-UP: PHYSICIAN FOLLOW-UP: Dr. Quinten Zepeda TREATMENT/EQUIPMENT ORDERS: ADAPTIVE EQUIPMENT NEEDED: None RESPIRATORY EQUIPMENT NEEDED: Oxygen DISCHARGE MEDICATIONS: Home Meds Active Scripts Oxycodone Hcl (OXYCODONE HCL IMMED.RELEASE ) 5 Mg Tablet, 5 MG PO PRN Q6HRS PRN for PAIN for 6 Days, #20 TAB Prov:TESSIE BARRETO MD 02/24/20 Pantoprazole Sodium (PANTOPRAZOLE SODIUM ) 40 Mg Tablet.dr, 40 MG PO DAILYAC for GERD for 30 Days, #30 TAB.SR Prov:TESSIE BARRETO MD 02/24/20 Lactobacillus Rhamnosus Gg (CULTURELLE) 1 Each Cap.sprink, 1 CAP PO BID for diarrhea for 30 Days, #60 CAP Prov:TESSIE BARRETO MD 02/24/20 Vddwjulilgnn-Wtym-Tbjtqgoi,Iso (ZOSYN 3.375 GM GALAXY BAG) 3.375 Gm/50 Ml Froz.piggy, 3.375 GM IV Q6HRS for Cholecystitis for 3 Days, #12 EACH Prov:TESSIE BARRETO MD 02/24/20 Furosemide (LASIX) 40 Mg Tablet, 1 TAB PO DAILY for chf for 30 Days, #30 TAB 0 Refills Prov:KIANNA ELY MD 01/18/20 Sacubitril/Valsartan (Entresto 24 mg-26 mg Tablet) 1 Each Tablet, 1 TAB PO BID, #60 TAB Prov:JULIO MARTINEZ MD 05/24/17 Reported Medications Potassium Chloride (POTASSIUM CHLORIDE ) 20 Meq Tablet.er, 20 MEQ PO DAILY for SUPPLEMENT, TAB.SR 01/18/20 Aspirin (ASPIR 81) 81 Mg Tablet.dr, 81 MG PO BID, TAB 04/04/17 Carvedilol (COREG ) 12.5 Mg Tablet, 12.5 MG PO BIDWMEALS, TAB 04/04/17 Discontinued Scripts Naproxen (NAPROSYN) 500 Mg Tablet, 1 TAB PO BID, #14 TAB 1 Refill Prov:NAGA DOAN MD 10/16/17 TESSIE BARRETO MD Feb 24, 2020 13:35
--- NOTE | 2020-02-24 14:05 | PDOC3 ---
Discharge Summary Visit Information Date of Admission: Feb 21, 2020 Date of Discharge: Feb 24, 2020 Admitting Diagnosis: Abdominal pain Final Diagnosis Problems Medical Problems: (1) Abdominal pain Status: Acute (2) Hepatitis Status: Acute Brief Hospital Course Allergies Allergies Coded Allergies Type Severity Reaction Last Updated Verified No Known Drug Allergies 04/04/17 No Vital Signs Vital Signs Date Time Temp Pulse Resp B/P (MAP) Pulse Ox O2 Delivery O2 Flow Rate FiO2 02/24/20 12:45 66 98/71 (80) 02/24/20 11:22 18 Room Air 02/24/20 11:00 97.3 98 97.3 02/24/20 10:52 2.0 Lab Results Laboratory Tests Test 02/22/20 21:10 02/23/20 05:00 02/24/20 04:10 Urine Collection Type Unknown Urine Color Yellow Urine Clarity Clear Urine pH 5.0 (<5.0-8.0) Urine Specific [place] 1.010 (1.000-1.030) Urine Protein Negative mg/dL (NEG-TRACE) Urine Glucose (UA) Negative mg/dL (NEG) Urine Ketones (Stick) Negative mg/dL (NEG) Urine Blood Large (NEG) Urine Nitrite Negative (NEG) Urine Bilirubin Negative (NEG) Urine Urobilinogen Dipstick 1.0 mg/dL (0.2 mg/dL) Urine Leukocyte Esterase Negative (NEG) Urine RBC Tntc /HPF (0-2) Urine WBC 1-4 /HPF (0-4) Urine Squamous Epithelial Cells Few /LPF Urine Amorphous Sediment Present /HPF Urine Bacteria 0 /HPF (0-FEW) Urine Mucus Slight /LPF Urine Opiates Screen Pos (NEG) Urine Methadone Screen Neg (NEG) Urine Barbiturates Neg (NEG) Urine Phencyclidine Screen Neg (NEG) Urine Amphetamine/Methamphetamine Neg (NEG) Urine Benzodiazepines Screen Neg (NEG) Urine Cocaine Screen Neg (NEG) Urine Cannabinoids Screen Pos (NEG) Urine Ethyl Alcohol Neg (NEG) White Blood Count 5.9 x10^3/uL (4.0-11.0) 6.5 x10^3/uL (4.0-11.0) Red Blood Count 4.32 x10^6/uL (4.30-5.70) 4.22 x10^6/uL (4.30-5.70) Hemoglobin 10.6 g/dL (13.0-17.5) 10.5 g/dL (13.0-17.5) Hematocrit 33.5 % (39.0-53.0) 32.7 % (39.0-53.0) Mean Corpuscular Volume 78 fL (79-100) 78 fL (79-100) Mean Corpuscular Hemoglobin 25 pg (25-35) 25 pg (25-35) Mean Corpuscular Hemoglobin Concent 32 g/dL (31-37) 32 g/dL (31-37) Red Cell Distribution Width 20.5 % (11.5-14.5) 20.1 % (11.5-14.5) Platelet Count 234 x10^3/uL (140-400) 242 x10^3/uL (140-400) Neutrophils (%) (Auto) 67 % (31-73) 64 % (31-73) Lymphocytes (%) (Auto) 22 % (24-48) 24 % (24-48) Monocytes (%) (Auto) 9 % (0-9) 11 % (0-9) Eosinophils (%) (Auto) 1 % (0-3) 1 % (0-3) Basophils (%) (Auto) 1 % (0-3) 0 % (0-3) Neutrophils # (Auto) 3.9 x10^3/uL (1.8-7.7) 4.2 x10^3/uL (1.8-7.7) Lymphocytes # (Auto) 1.3 x10^3/uL (1.0-4.8) 1.5 x10^3/uL (1.0-4.8) Monocytes # (Auto) 0.6 x10^3/uL (0.0-1.1) 0.7 x10^3/uL (0.0-1.1) Eosinophils # (Auto) 0.0 x10^3/uL (0.0-0.7) 0.0 x10^3/uL (0.0-0.7) Basophils # (Auto) 0.0 x10^3/uL (0.0-0.2) 0.0 x10^3/uL (0.0-0.2) Sodium Level 136 mmol/L (136-145) 137 mmol/L (136-145) Potassium Level 3.4 mmol/L (3.5-5.1) 3.2 mmol/L (3.5-5.1) Chloride Level 100 mmol/L (98-107) 99 mmol/L (98-107) Carbon Dioxide Level 29 mmol/L (21-32) 33 mmol/L (21-32) Anion Gap 7 (6-14) 5 (6-14) Blood Urea Nitrogen 23 mg/dL (8-26) 16 mg/dL (8-26) Creatinine 1.9 mg/dL (0.7-1.3) 1.7 mg/dL (0.7-1.3) Estimated GFR (Cockcroft-Gault) 44.4 50.5 Glucose Level 91 mg/dL (70-99) 78 mg/dL (70-99) Calcium Level 8.4 mg/dL (8.5-10.1) 8.5 mg/dL (8.5-10.1) Magnesium Level 1.3 mg/dL (1.8-2.4) Total Bilirubin 1.5 mg/dL (0.2-1.0) Direct Bilirubin 1.1 mg/dL (0.0-0.2) Aspartate Amino Transf (AST/SGOT) 64 U/L (15-37) Alanine Aminotransferase (ALT/SGPT) 62 U/L (16-63) Alkaline Phosphatase 177 U/L (46-116) Total Protein 6.6 g/dL (6.4-8.2) Albumin 2.6 g/dL (3.4-5.0) Laboratory Tests Test 02/24/20 04:10 White Blood Count 6.5 x10^3/uL (4.0-11.0) Red Blood Count 4.22 x10^6/uL (4.30-5.70) Hemoglobin 10.5 g/dL (13.0-17.5) Hematocrit 32.7 % (39.0-53.0) Mean Corpuscular Volume 78 fL (79-100) Mean Corpuscular Hemoglobin 25 pg (25-35) Mean Corpuscular Hemoglobin Concent 32 g/dL (31-37) Red Cell Distribution Width 20.1 % (11.5-14.5) Platelet Count 242 x10^3/uL (140-400) Neutrophils (%) (Auto) 64 % (31-73) Lymphocytes (%) (Auto) 24 % (24-48) Monocytes (%) (Auto) 11 % (0-9) Eosinophils (%) (Auto) 1 % (0-3) Basophils (%) (Auto) 0 % (0-3) Neutrophils # (Auto) 4.2 x10^3/uL (1.8-7.7) Lymphocytes # (Auto) 1.5 x10^3/uL (1.0-4.8) Monocytes # (Auto) 0.7 x10^3/uL (0.0-1.1) Eosinophils # (Auto) 0.0 x10^3/uL (0.0-0.7) Basophils # (Auto) 0.0 x10^3/uL (0.0-0.2) Sodium Level 137 mmol/L (136-145) Potassium Level 3.2 mmol/L (3.5-5.1) Chloride Level 99 mmol/L (98-107) Carbon Dioxide Level 33 mmol/L (21-32) Anion Gap 5 (6-14) Blood Urea Nitrogen 16 mg/dL (8-26) Creatinine 1.7 mg/dL (0.7-1.3) Estimated GFR (Cockcroft-Gault) 50.5 Glucose Level 78 mg/dL (70-99) Calcium Level 8.5 mg/dL (8.5-10.1) Magnesium Level 1.3 mg/dL (1.8-2.4) Total Bilirubin 1.5 mg/dL (0.2-1.0) Direct Bilirubin 1.1 mg/dL (0.0-0.2) Aspartate Amino Transf (AST/SGOT) 64 U/L (15-37) Alanine Aminotransferase (ALT/SGPT) 62 U/L (16-63) Alkaline Phosphatase 177 U/L (46-116) Total Protein 6.6 g/dL (6.4-8.2) Albumin 2.6 g/dL (3.4-5.0) Brief Hospital Course Mr Todd is a 59yo M w/ PMHx CAD s/p CABG 2011, sCHF w/ EF 15% s/p AICD, s/p mitral valve surgery who comes to ED c/o shortness of breath and RUQ pain. He c/o orthopnea and MARCELO with distances as long as 10 feet. No CP, abdominal pain, recent sick contacts. He notes he recently had some medication changes and was placed on amlodipine and had his furosemide discontinued. He continues to take coreg, entresto, and ASA. EKG was NSR with RR, but repolarization in leads V2 and V3 CXR shows enlarged cardiac silhouette. RUQ US concerning for gallbladder wall thickening and scant ascites as well as fatty infiltrative liver disease Labs with WBC 7.8, Hb 11.2, proBNP is elevated at 5363, Troponin 1.388, Bilirubin is 4, AST 159, ALT 117, INR 1.7, alk phos 259, Na 131, K 3.7, BUN 22, Cr 1.9 (baseline ~1.4), glucose 138. Admitted for further treatment with cardiology, GI, and general surgery consultation. Started on zosyn for concern for cholecystitis. 02/21: RUQ pain improved since admit 02/22: Laying down in bed, NAD, RUQ pain improved Afebrile, some mid-epigastric pain today. Potassium 3.2 magnesium 1.3 creatinine 1.7 down from 1.9 on admission. albumin 2.6, bilirubin 1.5. To HIDA scan 02/24/2020, Borderline low gallbladder ejection fraction, may relate to normal variation although can be seen with gallbladder dysfunction. He underwent right heart catheterization on 02/24/[address] Diallo Pulliam with findings: Findings: Pulmonary capillary wedge sat: 99.2% PA sat 50.2% Raoul cardiac output 3.1 L/min Raoul cardiac index 1.6 RA /21/19 RV 69/28/35 PA 64/38/43 Wedge 28/20 9/25 mmHg At case completion the catheter and sheath were removed and hemostasis was achieved with manual compression. There were no acute complications. Conclusion 1. Severe biventricular pressure overload. 2. Secondary pulmonary hypertension, mean PA 43 3. Low cardiac output Case was discussed with [facility] heart failure transplant team by Dr. Pulliam. We will transfer for VAD/transplant evaluation. I have made arrangements with [facility] transfer center. Problem list: Acute right upper quadrant abdominal pain - on zosyn for cholecystitis. 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 IV Diuresis and monitoring of renal function. Echo per cardiology. Consult cardiology. Strict I/O, daily weights. Cont coreg, entresto, asa Transaminitis - with elevated bilirubin, INR, likely congestive hepatopathy from CHF. 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 Would hold amlodipine given his swelling Chronic kidney disease - with some MADY, likely vasomotor nephropathy vs cardiorenal syndrome Anemia - likely of chronic disease Greater than 30 minutes spent on discharge coordination Discharge Information Condition at Discharge: Stable Disposition/Orders: D/C to Another Facility ([facility] HC [address] Quinten Zepeda) Scheduled Aspirin (Aspir 81) 81 Mg Tablet., 81 MG PO BID, (Reported) Entered as Reported by: BAILEY CARRASCO on 04/04/171309 Last Action: HELD on 02/21/201815 by ALONDRA MESA Carvedilol (Coreg ) 12.5 Mg Tablet, 12.5 MG PO BIDWMEALS, (Reported) Entered as Reported by: BAILEY CARRASCO on 04/04/17 1310 Last Action: Continued on 02/21/201815 by ALONDRA MESA Furosemide (Lasix) 40 Mg Tablet, 1 TAB PO DAILY for chf for 30 Days, #30 Ref 0 Prescribed by: KIANNA ELY MD on 01/18/20 1207 Last Action: Continued on 02/21/201815 by ALONDRA MESA Lactobacillus Rhamnosus Gg (Culturelle) 1 Each Cap.sprink, 1 CAP PO BID for diarrhea for 30 Days, #60 Prescribed by: TESSIE BARRETO MD on 02/24/20 1333 Pantoprazole Sodium (Pantoprazole Sodium ) 40 Mg Tablet., 40 MG PO DAILYAC for GERD for 30 Days, #30 Prescribed by: TESSIE BARRETO MD on 02/24/20 1333 Dkgzadxjslsr-Xzqw-Ktpwuznn,Iso (Zosyn 3.375 Gm Galaxy Bag) 3.375 Gm/50 Ml Froz.piggy, 3.375 GM IV Q6HRS for Cholecystitis for 3 Days, #12 Prescribed by: TESSIE BARRETO MD on 02/24/20 1333 Potassium Chloride (Potassium Chloride ) 20 Meq Tablet.er, 20 MEQ PO DAILY for SUPPLEMENT, (Reported) Entered as Reported by: FANTASMA VASQUEZ RN on 01/18/20 1526 Last Action: Continued on 02/21/201815 by ALONDRA MESA Sacubitril/Valsartan (Entresto 24 mg-26 mg Tablet) 1 Each Tablet, 1 TAB PO BID, #60 Prescribed by: JULIO MARTINEZ MD on 05/24/17 1631 Last Action: Continued on 02/21/201815 by ALONDRA MESA Scheduled PRN Oxycodone Hcl (Oxycodone Hcl Immed.release ) 5 Mg Tablet, 5 MG PO PRN Q6HRS PRN for PAIN for 6 Days, #20 Prescribed by: TESSIE BARRETO MD on 02/24/20 1333 Discontinued Medications Naproxen (Naprosyn) 500 Mg Tablet, 1 TAB PO BID, #14 Ref 1 Prescribed by: NAGA CHAPMAN MD on 10/16/171909 Last Action: HELD on 02/21/201815 by ALONDRA MESA Justicifation of Admission Dx: Justifications for Admission: Justification of Admission Dx: Yes TESSIE BARRETO MD Feb 24, 2020 14:05
--- NOTE | 2020-02-24 14:24 | NUR ---
SS following up with discharge planning. SS received notification that pt is accepted at . Accepting physician, Dr. Quinten Zepeda. Bed# [id number]. Report# [phone]. Packet, ambulance form, and transfer form on the chart. Addendum: 02/24/20 at 1426 by ANASTACIO HENRIQUEZ Pt transferring to via [facility] ambulance, .
--- NOTE | 2020-02-24 14:25 | RAD ---
NM HEPATOBILIARY SCAN W PHARM History: Right upper quadrant pain. Comparison: Ultrasound February 21, 2020 Technique: 5.5 mCi technetium 99m Choletec was administered intravenously and spot views were obtained on the gamma camera for a Nuclear Medicine hepatobiliary scan. 1.53 mcg of CCK drip was administered over 30 minutes and the region of interest was drawn around the gallbladder and gallbladder ejection fraction was calculated. Findings: There is rapid uptake of activity from the blood pool and concentration in the liver. Activity seen in the gallbladder at 5-10 minutes and small bowel at 120 minutes. There is a rapid response of the gallbladder to CCK and the gallbladder ejection fraction is 36% which is normal. Impression: 1. Borderline low gallbladder ejection fraction, may relate to normal variation although can be seen with gallbladder dysfunction. Electronically signed by: Dino Penaloza DO (02/24/2020 2:21 PM) IDA
--- NOTE | 2020-02-24 16:30 | NUR ---
Discharge Note: DOREEN TAYLOR Patient care instructions and medications reviewed with MANOJ RN and a copy given. All questions have been answered and understanding verbalized. Right IJ heart cath site changed and clean, dry, intact. Vital signs stable. All belongings taken with patient. Patient was transferred to [facility] with [facility] Fire Dept personnel via [employer]
== END 2020-02-24 16:30 | disposition short-term general hospital (02) | DRG 286 ==
LOC: ER 12:13 → 6 SOUTH 14:50 → 2 SOUTH 02-23 20:45
PROVIDERS: ADMIT Internal Medicine; ATTEND Internal Medicine
PROC: 4A023N6 Measurement of Cardiac Sampling and Pressure, Right Heart, Percutaneous Approach (ICD-10-PCS; principal; 2020-02-24)
DX: I13.0 Hypertensive heart and chronic kidney disease with heart failure and stage 1 through stage 4 chronic kidney disease, or unspecified chronic kidney disease (principal); I50.43 Acute on chronic combined systolic (congestive) and diastolic (congestive) heart failure; N17.0 Acute kidney failure with tubular necrosis; K81.0 Acute cholecystitis; R18.8 Other ascites; K75.9 Inflammatory liver disease, unspecified; I25.10 Atherosclerotic heart disease of native coronary artery without angina pectoris; I25.5 Ischemic cardiomyopathy; I27.20 Pulmonary hypertension, unspecified; D50.9 Iron deficiency anemia, unspecified; K21.9 Gastro-esophageal reflux disease without esophagitis; K76.1 Chronic passive congestion of liver; N18.3 Chronic kidney disease, stage 3 (moderate); R13.10 Dysphagia, unspecified; Z79.899 Other long term (current) drug therapy; Z82.49 Family history of ischemic heart disease and other diseases of the circulatory system; Z87.891 Personal history of nicotine dependence; Z95.1 Presence of aortocoronary bypass graft; Z95.810 Presence of automatic (implantable) cardiac defibrillator; Z03.818 Encounter for observation for suspected exposure to other biological agents ruled out
CPT/HCPCS: 36415; 71045; 76705; 76937; 78227; 80048; 80053; 80076; 80307; 81001; 83540; 83550; 83605; 83690; 83735; 83880; 84484; 85025; 85610; 85730; 87040; 87426; 93005; 93451; 96365; 96375; 99152; 99153; A9537; C1773; C1892; J0696; J1644; J1940; J2250; J2270; J2405; J2543; J2805; J3010; J3475; J3490; 99285-25; G0378; U0003-CS